=== PATIENT | male | born 1965 | race Caucasian/White ===

== ENCOUNTER 2016-03-24 13:00 | Inpatient (IN) | payer MEDICAID ==
[~2016-03-24] VITALS: Ht 175.3 cm; Wt 182.3 kg
--- NOTE | ~2016-03-24 | HEMODYNAMI ---
PATIENT:BRIAN PABLO MEDICAL RECORD: [id number] : 67 [facility] [id number] ADMISSION DATE: 03/24/16 Generatedon:03/25/201614:09 Patient name: BRIAN PABLO Patient #: [id number] SSN: : 1965 Date of study: 03/25/2016 Page: Of Hemodynamic Procedure Report Patient Data Patient Demographics Procedure consent was obtained First Name: BRIAN Gender: Male Last Name: SAMY : 1965 Patient #: [id number] Age: 50 year(s) Race: Unknown Additional ID: [id number] Contact details Address: [facility] [address] State: [place] City: [place] Zip code: [address] Past Medical History Allergies Allergen Reaction Date Comments Reported Other allergy 03/25/2016 DARVOCET N-100 Admission Admission Data Admission Date: 03/24/2016 Admission Time: 16:39 Room #: D.2117 Lab Results Lab Result Date: 03/25/2016 Lab Result Time: 0:00 Biochemistry Name Units Result Min Max BUN mg/dl 7 --(*---)-- 7 18 Creatinine mg/dl 0.8 --(-*--)-- 0.6 1.3 CBC Name Units Result Min Max Hemoglobin g/dl 12.2 *-(----)-- 13.5 17.5 Procedure Procedure Types Cath Procedure Diagnostic Procedure LHC LHC w/Coronaries PCI Procedure Coronary Stent Initial Procedure Description Procedure Date Procedure Date: 03/25/2016 Procedure Start Time: 13:32 Procedure End Time: 14:08 Procedure Staff Name Function Huy Villaseñor MD Performing Physician Taylor Doll RT Scrub Reema Guerra RN Nurse Reginald Menezes RT Monitor Procedure Data Cath Procedure Fluoroscopy Diagnostic fluoroscopy Total fluoroscopy Time: time: 10.1 min 10.1 min Diagnostic fluoroscopy Total fluoroscopy dose: dose: 2817 mGy 2817 mGy Contrast Material Contrast Material Type Amount (ml) Isovue 370 247 Entry Location Entry Primary Successful Side Size Upsize Upsize Entry Closure Marti ccessful Closure Location (Fr) 1 (Fr) 2 (Fr) Remarks Device Remarks Radial Right 6 Fr Mechanical artery Short Compression Diagnostic catheters Device Type Used For End Catheter Placement Terumo 5Fr Maxi 110cm LV Angiography catheter Terumo 5Fr [place] 110cm Left Coronary catheter Angiography Terumo Optitorque 5Fr Left Coronary [place] 4.5 catheter Angiography Cordis Infinity 5Fr AR 2 Right Coronary MOD catheter Angiography Procedure Complications No complications Procedure Medications Medication Administration Route Dosage Oxygen NC 2 l/min Heparin Flush Bag added to field 2 bags (1000units/500ml NS) Lidocaine 2% added to field 20 Radial Cocktail added to field 1 syringe (Verapomil 2mg/Nitro 400mcg/Heparin 1500units) Versed I.V. 1 mg Fentanyl I.V. 50 mcg Versed I.V. 1 mg Fentanyl I.V. 50 mcg Radial Cocktail I.A. 1 syringe (Verapomil 2mg/Nitro 400mcg/Heparin 1500units) Fentanyl I.V. 50 mcg Versed I.V. 0.5 mg Versed I.V. 0.5 mg Heparin Bolus I.V. 16705 units Versed I.V. 0.5 mg Fentanyl I.V. 25 mcg Versed I.V. 0.5 mg Fentanyl I.V. 25 mcg Plavix P.O. 600 mg Hemodynamics Rest HGB: 12.2 (g/dl) Heart Rate: 82 (bpm) Pressure Samples Time Site Value (mmHg) Purpose Heart Use Rate(bpm) 13:35 LV 177/-1,12 EDP 92 13:36 AO 176/92(122) Pullback 93 13:36 LV 177/12,15 Pullback 93 Gradients Valve Time Site 1 Site 2 Mean SEP/DFP Peak To Heart Use (mmHg) (sec/min) Peak Rate (mmHg) (bpm) Aortic 13:36 LV AO 91 Aortic 13:36 LV AO 13 6 1 93 177/12,15 176/92(122) Calculations Valve P-P Mean Valve Index Valve Source Name Gradient Area Flow (cm2) Aortic 1 13 1 13 Snapshots Pre Cath Intra NCS Post Cath Vital Signs Time Heart Resp SPO2 NIBP (mmHg) Rhythm Pain Sedation Rate (ipm) (%) Status Level (bpm) 13:14:33 98 16 99 Measuring NSR 0 (11) 10(A) , No pain 13:15:53 82 23 97 Out of range NSR 0 (11) 10(A) , No pain 13:19:08 82 16 98 210/108(176) NSR 0 (11) 10(A) , No pain 13:23:59 80 14 97 203/106(142) NSR 0 (11) 10(A) , No pain 13:28:48 79 15 97 193/99(157) NSR 0 (11) 10(A) , No pain 13:33:26 82 16 98 192/95(130) NSR 0 (11) 10(A) , No pain 13:38:00 90 15 96 173/96(138) NSR 0 (11) 9(A) , No pain 13:42:37 86 16 97 188/90(148) NSR 0 (11) 9(A) , No pain 13:47:15 84 16 98 184/96(136) NSR 0 (11) 9(A) , No pain 13:51:56 86 16 98 186/99(151) NSR 0 (11) 10(A) , No pain 13:56:55 85 16 96 Measuring NSR 0 (11) 10(A) , No pain 13:57:36 86 16 95 175/98(140) NSR 0 (11) 10(A) , No pain 14:02:13 90 16 99 186/94(134) NSR 0 (11) 10(A) , No pain 14:04:15 92 20 98 185/100(151) NSR 0 (11) 10(A) , No pain 14:08:50 156/91(122) NSR 0 (11) 10(A) , No pain Medications Time Medication Route Dose Verified Delivered Reason Note s Effectiveness by by 13:17:50 Oxygen NC 2 l/min Huy Reema Per physician Karthik Guerra RN 13:18:00 Heparin Flush added 2 bags Huy Huy used for Bag to Karthik Villaseñor MD procedure (1000units/500ml field NS) 13:18:07 Lidocaine 2% added 20ml Huy Huy used for to vial Karthik Villaseñor MD procedure field 13:18:15 Radial Cocktail added 1 Huy Huy used for (Verapomil to syringe Karthik Villaseñor MD procedure 2mg/Nitro field 400mcg/Heparin 1500units) 13:26:29 Versed I.V. 1 mg Huy Reema for sedation Karthik Guerra RN 13:26:34 Fentanyl I.V. 50 mcg Huy Reema for sedation Karthik Guerra RN 13:30:25 Versed I.V. 1 mg Huy Reema for sedation Karthik Guerra RN 13:30:33 Fentanyl I.V. 50 mcg Huy Reema for sedation Karthik Guerra RN 13:32:53 Radial Cocktail I.A. 1 Huy Huy for (Verapomil syringe Karthik Villaseñor MD vasodilation 2mg/Nitro 400mcg/Heparin 1500units) 13:33:06 Fentanyl I.V. 50 mcg Huy Reema for sedation Karthik Guerra RN 13:33:14 Versed I.V. 0.5 mg Huy Reema for sedation Karthik Guerra RN 13:38:17 Versed I.V. 0.5 mg Huy Reema for sedation Karthik Guerra RN 13:53:35 Heparin Bolus I.V. 52388 Huy Reema for dose units Karthik Guerra RN anticoagulation verified wtih dr villaseñor 13:53:57 Versed I.V. 0.5 mg Huy Reema for sedation Karthik Guerra RN 13:54:04 Fentanyl I.V. 25 mcg Huy Reema for sedation Karthik Guerra RN 13:59:42 Versed I.V. 0.5 mg Huy Reema for sedation Karthik Guerra RN 13:59:46 Fentanyl I.V. 25 mcg Huy Reema for sedation Karthik Guerra RN 14:02:42 Plavix P.O. 600 mg Huy Reema for Karthik Guerra RN antiplatelet therapy Procedure Log Time Note 12:41:41 ACC Patient presents with Unstable Angina CCS Anginal Class 2--Slight limitation of ordinary activity. 12:41:44 Diagnostic Cath status Urgent 12:41:47 Reginald Menezes RT(R) sent for patient. Start room use. 12:41:49 Time tracking: Regular hours 12:41:53 Plan of Care:Hemodynamics will remain stable., Cardiac rhythm will remain stable., Comfort level will be maintained., Respiratory function will remain adequate., Patient/ family verbilizes understanding of procedure., Procedure tolerated without complication., Recovers from procedure without complications.. 13:12:44 Vital chart was started 13:17:50 Oxygen 2 l/min NC was given by Reema Guerra RN; Per physician; 13:18:00 Heparin Flush Bag (1000units/500ml NS) 2 bags added to field was given by Huy Villaseñor MD; used for procedure; 13:18:07 Lidocaine 2% 20ml vial added to field was given by Huy Villaseñor MD; used for procedure; 13:18:15 Radial Cocktail (Verapomil 2mg/Nitro 400mcg/Heparin 1500units) 1 syringe added to field was given by Huy Villaseñor MD; used for procedure; 13:22:42 Patient received from PCU to CCL 1 Alert and oriented. Tansferred to table in Supine position. 13:22:43 Warm blankets applied, and rob hugger turned on for patient comfort. 13:22:44 Correct patient and procedure confirmed by team. 13:22:45 Signed procedure consent form obtained from patient. 13:22:46 ECG and BP/O2 sat monitors applied to patient. 13:22:47 Baseline sample Acquired. 13:22:51 Rhythm: sinus rhythm 13:22:52 Full Disclosure recording started 13:22:59 H&P Date Dictated: 03/24/2016 Within 30 days and on chart., H&P Addendum completed by physician on day of procedure. (MUST COMPLETE FOR ALL OUTPATIENTS). 13:23:13 Pre-procedure instructions explained to patient. 13:23:14 Pre-op teaching completed and patient verbalized understanding. 13:23:16 Family unavailable. 13:23:22 Patient NPO since Midnight. 13:23:42 Patient allergic to Other allergyDARVOCET N-100 13:23:46 Is the patient allergic to Iodine/contrast media? No. 13:23:48 Was the patient premedicated? No 13:23:51 Is patient on blood thinner?No 13:23:53 Patient diabetic? Yes. 13:23:54 If diabetic: On Metformin? Yes 13:24:08 ----Pre-sedation anethsthesia assessment.---- 13:24:12 If on Metformin: Last Dose? 03/25/2016 13:24:15 Previous problem with sedation/anesthesia? No ? 13:24:16 Snore? Yes 13:24:18 Sleep apnea? Yes 13:24:19 Deviated septum? No 13:24:26 Opens mouth fully? Yes 13:24:30 Sticks out tongue? Yes 13:24:34 Airway obstruction? Yes COPD 13:24:47 Dentures? No ? 13:25:07 Pre procedure: right dorsailis pedis pulse 1+ Palpable, but thready & weak; easily obliterated 13:25:10 Modified Shay's test Ulnar < 7 seconds 13:25:16 Patient pain scale 0/10 ?. 13:25:23 IV patent on arrival in left antecubital with 0.9% NaCl at 10ml/hr. 13:25:51 Lab Result : BUN 7 mg/dl 13:25:51 Lab Result : Creatinine 0.8 mg/dl 13:25:51 Lab Result : Hemoglobin 12.2 g/dl 13:25:54 Lab results completed and on chart. 13:25:57 Right Radial & Right Groin area was prepped with chlora-prep and draped in sterile fashion 13:25:58 Alarms reviewed by R. N. 13:25:58 Sharps counted by scrub and verified by R.N. 13:26:02 --------ALL STOP TIME OUT------ 13:26:02 Final Timeout: patient, procedure, and site verified with staff and physician. All members of the team are in agreement. 13:26:04 Right Radial & Right Groin site verified by team. 13:26:07 Physical assessment completed. ASA score P 3 - A patient with severe systemic disease as per Huy Villaseñor MD. 13:26:11 Sedation plan: IV Moderate Sedation Versed, Fentanyl 13:26:29 Versed 1 mg I.V. was given by Reema Guerra RN; for sedation; 13:26:34 Fentanyl 50 mcg I.V. was given by Reema Guerra RN; for sedation; 13:26:52 Use device set Radial Dx 13:27:34 Acist Syringe opened to sterile field. 13:27:34 Cardinal Cath Pack opened to sterile field. 13:27:35 Bag Decanter opened to sterile field. 13:27:35 Terumo 6Fr Slender Glidesheath opened to sterile field. 13:27:35 St [place]var[place] 260cm J .035 wire opened to sterile field. 13:27:36 Acist Hand Control opened to sterile field. 13:27:37 Acist Manifold opened to sterile field. 13:28:33 Procedure started. 13:30:25 Versed 1 mg I.V. was given by Reema Guerra RN; for sedation; 13:30:33 Fentanyl 50 mcg I.V. was given by Reema Guerra RN; for sedation; 13:31:10 Zero performed for pressure channel P1 13:31:14 Zero performed for pressure channel P1 13:31:20 Zero performed for pressure channel P1 13:32:42 Local anesthetic to right radial artery with Lidocaine 2% by Huy Villaseñor MD.INITIAL ACCESS ONLY 13:32:50 A 6 Fr Short sheath was inserted into the Right Radial artery 13:32:53 Radial Cocktail (Verapomil 2mg/Nitro 400mcg/Heparin 1500units) 1 syringe I.A. was given by Huy Villaseñor MD; for vasodilation; 13:33:06 Fentanyl 50 mcg I.V. was given by Reema Guerra RN; for sedation; 13:33:14 Versed 0.5 mg I.V. was given by Reema Guerra RN; for sedation; 13:34:27 A Terumo 5Fr Maxi 110cm catheter was advanced over the wire and used for LV Angiography. 13:35:19 LV angiography performed. 13:35:21 LV gram done using STACK 13:35:24 LV hemodynamics recorded. 13:35:44 EF : 50 % 13:38:17 Versed 0.5 mg I.V. was given by Reema Guerra RN; for sedation; 13:39:00 Catheter removed. 13:39:43 A Terumo 5Fr [place] 110cm catheter was advanced over the wire and used for Left Coronary Angiography. 13:42:59 Catheter removed. 13:44:24 A Terumo Optitorque 5Fr [place] 4.5 catheter was advanced over the wire and used for Left Coronary Angiography. 13:46:19 Catheter removed. 13:46:24 A MathZee Infinity 5Fr AR 2 MOD catheter was advanced over the wire and used for Right Coronary Angiography. 13:50:28 Catheter removed. 13:52:00 High Pressure Extension Tubing (Karthik) opened to sterile field. 13:52:00 Alves BMW [place] 2 J-tip 300cm 0.014 guide wir opened to sterile field. 13:52:01 Cordis 6FR XBLAD 4.0 guide catheter opened to sterile field. 13:52:01 Wallept BasixCompak Inflation Kit opened to sterile field. 13:52:14 ACC PCI Site: mLAD has 80% stenosis. 13:52:16 ACC Pre-intervention SHIRLEY Flow is 3. 13:52:25 6 Fr XBLAD 4 guide catheter was inserted over the wire 13:52:34 BMW 2 wire advanced. 13:53:35 Heparin Bolus 73863 units I.V. was given by Reema Guerra RN; for anticoagulation; dose verified wtih dr villaseñor 13:53:57 Versed 0.5 mg I.V. was given by Reema Guerra RN; for sedation; 13:54:04 Fentanyl 25 mcg I.V. was given by Reema Guerra RN; for sedation; 13:58:47 Inflation Number: 1 A Cardeeotronic Integrity 3.5 X 18 stent was prepped and advanced across the Mid LAD. The stent was deployed at 16 JOSH for 0:17 (min:sec). 13:59:42 Versed 0.5 mg I.V. was given by Reema Guerra RN; for sedation; 13:59:46 Fentanyl 25 mcg I.V. was given by Reema Guerra RN; for sedation; 14:00:19 Stent catheter was removed intact over wire. 14:00:20 Wire removed. 14:00:20 Guide catheter removed. 14:00:46 Sheath removed intact; hemostasis achieved with Mechanical Compression to the Right Radial artery. 14:00:57 Procedure ended.(Physican Out) 14:01:16 Contrast amount:Isovue 370 247ml. 14:01:23 Fluoroscopy time 10.10 minutes. 14::31 Fluoroscopy dose: 2817 mGy 14:: Flurop Dose total: 2817 14::33 Sharps counted by scrub and verified by R.N. 14:01:35 TR band inflated with 10cc of air. 14:01:37 Insertion/operative site no bleeding no hematoma. 14:01:57 Post-op/insertion site Right Radial artery dressed using a 4 x 4 and Tegaderm. 14:02:03 Post right radial artery:stable 14:02:24 Post Procedure Pulses reassessed and unchanged 14:02:32 Post procedure rhythm: sinus rhythm 14:02:33 Post procedure instruction explained to patient.Patient verbalizes understanding. 14:02:42 Plavix 600 mg P.O. was given by Reema Guerra RN; for antiplatelet therapy; 14:02:43 Patient needs reinforcement of post procedure teaching. 14:03:09 Procedure type changed to Cath procedure, Diagnostic procedure, LHC, LHC w/Coronaries, PCI procedure, Coronary Stent Initial 14:03:13 Procedure and supply charges have been captured, reviewed, submitted and are correct. 14:03:53 Terumo TR Band Standard opened to sterile field. 14:04:00 Procedure Complication : No complications 14:08:27 Vital chart was stopped 14:08:28 See physician's report for complete and final results. 14:08:35 Report given to PCU. 14:08:39 Patient transfered to PCU with Bed. 14:08:42 Procedure ended. 14:08:42 Full Disclosure recording stopped 14:08:54 ACC-PCI Only Patient was given prescriptions, or instructed by Huy Villaseñor MD to start/continue the following medications upon discharge: Plavix 14:08:57 End room use (Document Last) Intervention Summary Intervention Notes Time ActionType Lesion and Equipment Action# Pressure Duration Attributes Used 13:58:47 Place stent Mid LAD Medtronic 1 16 00:17 Integrity 3.5 X 18 stent Device Usage Item Name Manufacture Quantity Catalog Hospital Part Current Minimal Lot# / Number Charge Number Stock Stock Serial# Code Acist Acist 1 83767 858112 586156 316992 20 Syringe Medical Systems Inc Cardinal Cardinal 1 [id number] 557993 05527 161733 5 Cath Pack Health Bag Microtek 1 2001S 252436 22954 851438 5 Cloud[employer]age [employer] Terumo 6Fr Terumo 1 [id number] 500517 487781 788015 [address] St Alvarado 1 123734 514663 550895 167190 30 260cm J .035 wire Acist Hand Acist 1 29704 116235 821128 395462 5 Control Medical Systems Inc Acist Acist 1 96052 183264 933186 811510 5 Manifold Medical Systems Inc Terumo 5Fr Terumo 1 40-5023 102021 215713 902235 5 Maxi 110cm catheter Terumo 5Fr Terumo 1 40-0513 238924 198723 239149 5 [place] 110cm catheter Terumo Terumo 1 40-5012 032360 025898 981239 5 Optitorque 5Fr [place] 4.5 catheter Cordis Cardinal 1 [id number] 464473 886603 884778 20 Infinity Health 5Fr AR 2 MOD catheter High Merit 1 [id number] 433540 35576 339621 10 Pressure Medical Extension Tubing (Villaseñor) Alves BMW Alves 1 [id number] 737881 306423 649413 5 [place] 2 Vascular J-tip 300cm 0.014 guide wir Cordis 6FR Cardinal 1 [id number] 102649 080485 988889 3 XBLAD 4.0 Health guide catheter Merit Merit 1 [id number] 821792 470630 579005 15 BasixCompak Medical Inflation Kit Medtronic Medtronic 1 [id number] 940864 116129 9 [id number] Integrity 3.5 X 18 stent Terumo TR Terumo 1 [id number] 010624 785934 325436 40 Band Standard Signature Audit Haskell Stage Time Signature Unsigned Intra-Procedure 03/25/2016 Reginald Menezes 2:09:47 PM RT(R) Signatures Monitor : Reginald Menezes RT Signature : Date : Time : [facility] [address] [place] [address]
[~2016-03-24 13:00] MED LIST: ALLEGRA-D1 TAB.SR . PO; AMBIEN10 MG PO; AMITRIPTYLINE H50 MG PO; APIDRA SOL100 UNIT/1; GLUCOPHAGE1000 MG PO; LANTUS SOL100 UNIT/1; LYRICA150 MG PO; MORPHINE SULFAT15 M3 PO; NEURONTIN 300300 MG PO; NORCO 10/325 TA1 TA1 PO; NOVOLIN R100 U/ML SQ; NYSTATIN60 GM TP; ORAMORPH SR30 MG PO; PRINIVIL20 MG PO; TAMIFLU75 MG PO; TOPROL XL50 MG PO; ZITHROMAX500 MG PO
[2016-03-24 14:06] LABS: BASOPHILS 0.5 % (0.0-2.0); EOSINOPHILS 4.7 % (0-7); HEMATOCRIT 41.1 % (42.0-54.0); HEMOGLOBIN 13.5 g/dL (13.5-17.5); IMMATURE GRANULOCYTES 0.5 % (0-5); LYMPHOCYTES 23.7 % (15-50); MCH 28.2 pg (26.0-34.0); MCHC 32.8 g/dL (31.0-37.0); MCV 85.8 fL (80.0-100.0); MEAN PLATELET VOLUME 11.7 fL (7.4-10.4); MONOCYTES 13.2 % (2-11); NEUTROPHILS 57.4 % (40-80); PLATELET COUNT 127 10x3/uL (130-400); RBC 4.79 10x6/uL (4.20-6.10); RDW 14.4 % (11.5-14.5); WBC 5.8 10x3/uL (4.8-10.8)
[2016-03-24 14:22] LABS: APPEARANCE HAZY (CLEAR); BACTERIA MODERATE /hpf (NONE SEEN); BILIRUBIN NEGATIVE (NEGATIVE); COLOR YELLOW (YELLOW); EPITHELIAL CELLS 0-5 /hpf (0-5); GLUCOSE 1000 mg/dL (NEGATIVE); KETONE NEGATIVE (NEGATIVE); LEUKOCYTE ESTERASE TRACE (NEGATIVE); MUCUS >1+ /lpf (NONE SEEN); NITRITE NEGATIVE (NEGATIVE); PROTEIN NEGATIVE (NEGATIVE); SPECIFIC GRAVITY 1.015 (1.005-1.020); UROBILINOGEN NORMAL (NORMAL)
[2016-03-24 14:25] LABS: UDS - AMPHET NEGATIVE QUAL (NEGATIVE); UDS - BARB NEGATIVE QUAL (NEGATIVE); UDS - BENZO NEGATIVE QUAL (NEGATIVE); UDS - COCAINE NEGATIVE QUAL (NEGATIVE); UDS - METH NEGATIVE QUAL (NEGATIVE); UDS - OPIATE POSITIVE QUAL (NEGATIVE); UDS - PCP NEGATIVE QUAL (NEGATIVE); UDS - THC NEGATIVE QUAL (NEGATIVE)
[2016-03-24 15:52] LABS: ALKALINE PHOSPHATASE 78 U/L (46-116); ALT (SGPT) 30 U/L (10-68); CALC OSMOLALITY 289 mosm/kg (275-300); CALCIUM 8.5 mg/dL (8.5-10.1); CARBON DIOXIDE 32.4 mmol/L (21.0-32.0); CHLORIDE - SERUM 101 mmol/L (98-107); CREATININE - SERUM 0.9 mg/dL (0.6-1.3); POTASSIUM - SERUM 4.1 mmol/L (3.5-5.1); PROTEIN - SERUM 6.7 g/dL (6.4-8.2); SODIUM 138 mmol/L (136-145); UREA NITROGEN 8 mg/dL (7-18); eGFR NON AFRICAN AMERICAN > 90 mL/min (90-120)
[2016-03-24 15:56] LABS: GLUCOSE 380 mg/dL (74-106)
[2016-03-24 16:11] LABS: CREATINE KINASE 286 UL (21-232); MAGNESIUM - SERUM 1.3 mg/dL (1.8-2.4); PRO BNP 271 pg/mL (0-125)
[2016-03-24 16:14] LABS: TROPONIN-I 0.098 ng/mL (0.000-0.060)
[2016-03-24 16:32] LABS: CKMB 2.6 U/L (0.0-3.6)
--- NOTE | 2016-03-24 17:49 | NUR ---
Patient Name: BRIAN PABLO Admission Status: ER Accout number: [id number] Admission Date: 03-24-2016 : 1965 Admission Diagnosis: Attending: CARTER Current LOS: 1 Anticipated DC Date: 03/25/2016 Planned Disposition: Primary Insurance: MEDICAID [place] Discharge Planning Comments: CM met with patient to discuss admission and dc plans. Consent from patient to complete assessment. Patient resides home alone. He has a cg 4 hours a day that assists with cooking, cleaning, bathing, dressing, and medication management. Patient reports he is wheelchair bound. HE has a cpap and O2 that he wears 06/10. Santa is his DME provider. HE reports his caregiver also provides all transportation needs for him. His aide is hired through [employer]. He plans to return home alone at discharge. He feels his home is safe. CM will continue to follow and assist as needed with dc plans/needs. Elastic Assembler: Mikki Casarez RN, CCM Is the patient Alert and Oriented? Yes * How many steps to enter\exit or inside your home? 0 * PCP Dr. Fontanez * Pharmacy [facility] * Preadmission Environment Home Alone * ADLs Partial Dependent * Partial ADLs (Assistance needed) Bathing Dressing Medication Management * Equipment Bedside Commode CPAP Glucometer Hospital Bed Nebulizer Oxygen Wheelchair * List name and contact numbers for known caregivers / representatives who currently or will assist patient after discharge: Srini Ordaz, Caregiver, he will get her phone number. * Community resources currently utilized Private Duty Care * Additional services required to return to the preadmission environment? No * Can the patient safely return to the preadmission environment? Yes * Has this patient been hospitalized within the prior 30 days at any hospital? No
[2016-03-24] MEDS ORDERED: PROVENTIL HFA6.7 GM INH (20:05)
[2016-03-24] MEDS ORDERED: MIRALAX527 GM PO (20:06)
[2016-03-24] MEDS ORDERED: NYAMYC60 GM TP (20:06)
[2016-03-25] VITALS (13 sets, daily range): BP systolic 140–217; BP diastolic 69–102; Ht 175.3 cm; Wt 182.3 kg
--- NOTE | 2016-03-25 04:43 | NUR ---
PT ARRIVED TO UNIT BY STRETCHER WITH FAMILY AT SIDE NO DISTRESS OBSERVED IVP FLUSHED WITH 10CC NORMAL SALINE. HOME MEDS REVIEWED WITH PT. BED LOW AND LOKCED CALL LIGHT IN REACH WILL MONITOR
--- NOTE | 2016-03-25 08:17 | NUR ---
ASSESSMENT COMPLETE PT RESTING QUIETLY DENIES ANY NEEDS OR DISCOMFORT NAD NOTED
[2016-03-25 08:43] LABS: CALC OSMOLALITY 291 mosm/kg (275-300); CARBON DIOXIDE 28.4 mmol/L (21.0-32.0); CHLORIDE - SERUM 105 mmol/L (98-107); CREATININE - SERUM 0.8 mg/dL (0.6-1.3); GLUCOSE 266 mg/dL (74-106); SODIUM 143 mmol/L (136-145); UREA NITROGEN 7 mg/dL (7-18); eGFR NON AFRICAN AMERICAN > 90 mL/min (90-120)
[2016-03-25 08:52] LABS: BASOPHILS 0.4 % (0.0-2.0); EOSINOPHILS 7.2 % (0-7); HEMOGLOBIN 12.2 g/dL (13.5-17.5); IMMATURE GRANULOCYTES 0.4 % (0-5); LYMPHOCYTES 40.3 % (15-50); MCH 28.2 pg (26.0-34.0); MCV 85.5 fL (80.0-100.0); MEAN PLATELET VOLUME 11.7 fL (7.4-10.4); MONOCYTES 9.8 % (2-11); NEUTROPHILS 41.9 % (40-80); PLATELET COUNT 120 10x3/uL (130-400); RBC 4.33 10x6/uL (4.20-6.10); RDW 14.5 % (11.5-14.5); WBC 4.7 10x3/uL (4.8-10.8)
--- NOTE | 2016-03-25 14:20 | NUR ---
RECEIVED PT BACK TO ROOM VIA BED IN STABLE CONDITION TR BAND INTACT TO RT WRIST WILL CONTINUE TO MONITOR
--- NOTE | 2016-03-25 23:50 | NUR ---
PT LAYING IN BED EYES CLOSED BIPAP ON AND NO DISTRESS OBSERVED AT THIS TIME CALL LIGHT IN REACH SRX2 BED LOW AND LOCKED TR BAND IN PLACE AND AIR OUT NO S/S OF HEMATOMA OR BLEEDING PRESENT WILL MONITOR
[2016-03-26 00:14] VITALS: BP 200/88
[2016-03-26 05:07] VITALS: BP 202/68
[2016-03-26 07:37] VITALS: BP 178/73
--- NOTE | 2016-03-26 09:13 | NUR ---
TELEMETRY SR. RESP UL ON 02 4L NC. CALL LIGHT IN REACH. WILL CONT. PLAN OF CARE.
[2016-03-26 11:27] VITALS: BP 189/66
--- NOTE | 2016-03-26 13:06 | NUR ---
RATIONALE FOR SCD'S EXPLAINED. REFUSED SCD'S
[2016-03-26 15:27] VITALS: BP 197/78
[2016-03-26 21:18] VITALS: BP 157/59
--- NOTE | 2016-03-26 23:41 | NUR ---
PT LAYING IN BED NO DISTRESS OBSERVED AT THIS TIME WILL MONITRO
[2016-03-27 01:32] VITALS: BP 141/61
[2016-03-27 04:57] VITALS: BP 192/87
[2016-03-27 08:38] VITALS: BP 125/95; BP 235/95
--- NOTE | 2016-03-27 09:15 | NUR ---
ELEVATED B/P GIVEN TO DR. GALVAN. NEW ORDERS GIVEN.
[2016-03-27 12:25] VITALS: BP 209/90
--- NOTE | 2016-03-27 15:29 | NUR ---
B/P CALLED TO DR. GALVAN. NEW ORDERS GIVEN.
[2016-03-27 16:28] VITALS: BP 201/73
--- NOTE | 2016-03-27 19:36 | NUR ---
RESUMED CARE OF PT, LYING IN BED RESPIRATIONS EVEN AND UNLABORED ON 4LPM VIA NC. 84 SR ON TELEMETRY. LEFT AC SALINE LOCKED. PLAN OF CARE DISCUSSED. CALL LIGHT IN REACH. WILL CONTINUE TO MONITOR. SEE NURSE ASSESSMENT.
[2016-03-27 20:50] VITALS: BP 237/107
--- NOTE | 2016-03-27 21:35 | NUR ---
RECHECKED BP 177/76. STATES HEADACHE IS IMPROVING, WILL CONTINUE TO MONITOR.
[2016-03-28 02:50] VITALS: BP 146/78
--- NOTE | 2016-03-28 05:00 | NUR ---
CALL LIGHT IN REACH, WILL CONTINUE WITH PLAN OF CARE.
[2016-03-28 05:22] VITALS: BP 148/70
[2016-03-28 08:00] VITALS: BP 198/63
--- NOTE | 2016-03-28 09:08 | NUR ---
RESP UL ON 02 4L NC. CALL LIGHT IN REACH. WILL MONITOR NEEDS.
[2016-03-28 12:00] VITALS: BP 176/59
--- NOTE | 2016-03-28 14:06 | NUR ---
Nutrition Follow Up: Pt reported that his appetite is very poor. He stated that he does not typically eat breakfast. Pt said that he has lost ~50# in the past few months. Food preferences noted. Diet: Diabetic PO Intake: 58% (9 meal avg) Wt gain of 7# since admit Labs noted - Glucose elevated Meds noted: Humalog, Metformin Pt with fair po intake at this time. Rec continue current diet. Will continue to provide selective menus and honor food preferences when able. RD following.
[2016-03-28 16:02] VITALS: BP 161/65
[2016-03-28 20:35] VITALS: BP 195/70
[2016-03-29 00:45] VITALS: BP 157/70
--- NOTE | 2016-03-29 02:04 | NUR ---
PT RESTING WELL WITHOUT C/O OR DISTRESS NOTED. NO NEEDS VOICED. CALL LIGHT WITHIN REACH. WILL CONT TO MONITOR.
[2016-03-29 04:20] VITALS: BP 156/68
[2016-03-29 08:40] VITALS: BP 192/80
--- NOTE | 2016-03-29 09:40 | NUR ---
ASSESSMENT COMPLETEDTELEMERTY SHOWS SR. 02 AT 4 L/M PER NC. UP TO BR WITH MINIAL HELP. CALL LIGHT IN REACH WITH SR UP. WILL MONITOR
[2016-03-29] MEDS ORDERED: NITRO-BID60 GM TOPICAL (10:15)
[2016-03-29] MEDS ORDERED: NORMODYNE / TR300 MG PO (10:15)
[2016-03-29 12:03] VITALS: BP 193/79
[2016-03-29] MEDS ORDERED: PLAVIX75 MG PO (12:39)
--- NOTE | 2016-03-29 13:32 | NUR ---
PT DISCHARGED. IV DCD WITH TIP INTACT. INSTRUCTIONS GIVEN TO PT. TO PRIVATE CAR PER WHEELCHAIR
--- NOTE | 2016-04-07 15:45 | OP ---
PATIENT NAME: BRIAN PABLO MEDICAL RECORD: [id number] :67 LOCATION:D.M2 D.2117 ADMISSION DATE:03/25/16 SURGEON: DAVE GALVAN M.D. DATE OF OPERATION: 03/25/2016 Catheterization Report REFERRING PHYSICIAN: Giuseppe Fontanez MD PROCEDURES PERFORMED: 1. Selective coronary angiography. 2. Left heart catheterization with ventriculogram. 3. PTCA and stent placed in LAD INDICATION: A 50-year-old gentleman presents with symptoms of angina and abnormal cardiac enzymes. EQUIPMENT USED: Diagnostic 5-Kazakh [place] 4.5 catheter, AR catheter, Maxi catheter. INTERVENTION: A 6-Kazakh XB LAD 4.0 guide, BMW guide wire, 3.5 x 18 mm Integrity stent. TECHNIQUE: A 6-Kazakh sheath was inserted in retrograde fashion in the right radial artery. Next, selective coronary angiography was performed in standard views using 5-Kazakh [place] and AR modified catheters. Left heart catheterization was performed using the Maxi catheter. CORONARY ANATOMY: 1. Left main: Left main trunk is large in caliber. It gives rise to the LAD and circumflex. It is angiographically normal. 2. LAD: This vessel is large in caliber. The proximal vessel demonstrates a ruptured plaque representing 80% stenosis. 3. Circumflex: This vessel is quite large and dominant. It provides the lateral branch in the proximal segment ____ posterolateral distal segment. The circumflex and tributaries are and angiographically normal. 4. Right coronary artery: This vessel is small and nondominant. It appears angiographically normal. 5. Left ventricle: Left ventricle is normal in size and function. No wall motion abnormalities are seen. Estimated ejection fraction is 55%. DESCRIPTION OF INTERVENTION: A 12,000 units of heparin was infused. A 6-Kazakh XB LAD 4.0 guide was advanced and engaged in the left main coronary artery. Next, a BMW guide wire was placed in the distal vessel. A 3.5 x 18 mm Integrity stent was placed across the stenosis and deployed at 16 atmospheres. Injection reveals stent to be widely patent with 0% residual stenosis. There is marked improvement in distal flow. At this point, the wire and guide were removed. IMPRESSION: Successful percutaneous transluminal coronary angioplasty and stent in the left anterior descending with 0% residual stenosis. TRANSINT:[id number] Voice Confirmation ID: [id number] DOCUMENT ID: [id number] OPERATIVE REPORT [id number] BRIAN PABLO TIMOTHY E M.D. at 1545 CC: [id number] DICTATION DATE: 03/25/161405 SAFE TECHNICIAN: 03/25/16 1417 DIS IN 03/29/16 [place] [id number] [place] [id number]
== END 2016-03-29 13:33 | disposition home or self-care (01) | DRG 249 ==
LOC: D.ER 13:00 → D.M2 16:39 → OBSVTIME 16:39 → D.M2 03-25 20:08
PROVIDERS: Family Medicine; Internal Medicine Cardiovascular Disease; Nurse Practitioner Family; ADMIT Legal Medicine
PROC: B211YZZ Fluoroscopy of Multiple Coronary Arteries using Other Contrast (ICD-10-PCS; 2016-03-25)
PROC: 02703DZ Dilation of Coronary Artery, One Artery with Intraluminal Device, Percutaneous Approach (ICD-10-PCS; principal; 2016-03-25 13:30)
PROC: 4A023N7 Measurement of Cardiac Sampling and Pressure, Left Heart, Percutaneous Approach (ICD-10-PCS; 2016-03-25 13:30)
DX: I25.10 Atherosclerotic heart disease of native coronary artery without angina pectoris (principal); Z68.43 Body mass index [BMI] 50.0-59.9, adult; I69.351 Hemiplegia and hemiparesis following cerebral infarction affecting right dominant side; I10 Essential (primary) hypertension; E78.5 Hyperlipidemia, unspecified; E66.01 Morbid (severe) obesity due to excess calories; E11.40 Type 2 diabetes mellitus with diabetic neuropathy, unspecified; G89.4 Chronic pain syndrome

== ENCOUNTER 2016-07-23 16:46 | Emergency (ER) | payer MEDICAID ==
[2016-03-25 14:03] VITALS: BMI 59.1
[~2016-07-23 16:46] MED LIST changes: +MIRALAX527 GM PO; +NITRO-BID60 GM TOPICAL; +NORMODYNE / TR300 MG PO; +NYAMYC60 GM TP; +PLAVIX75 MG PO; +PROVENTIL HFA6.7 GM INH
[2016-07-23 17:30] LABS: BASOPHILS 0.3 % (0-2); EOSINOPHILS 5.5 % (0-7); HEMATOCRIT 32.8 % (42.0-54.0); HEMOGLOBIN 10.7 g/dL (13.5-17.5); IMMATURE GRANULOCYTES 0.3 % (0-5); LYMPHOCYTES 19.2 % (15-50); MCH 28.6 pg (26.0-34.0); MCHC 32.6 g/dL (31.0-37.0); MCV 87.7 fL (80.0-100.0); MEAN PLATELET VOLUME 11.2 fL (7.4-10.4); MONOCYTES 10.1 % (2-11); NEUTROPHILS 64.6 % (40-80); PLATELET COUNT 119 10x3/uL (130-400); RBC 3.74 10x6/uL (4.20-6.10); RDW 13.7 % (11.5-14.5); WBC 7.4 10x3/uL (4.8-10.8)
[2016-07-23 18:06] LABS: ALBUMIN 2.8 g/dL (3.4-5.0); ALKALINE PHOSPHATASE 88 U/L (46-116); ALT (SGPT) 25 U/L (10-68); BILIRUBIN - TOTAL 0.42 mg/dL (0.2-1.3); CALC OSMOLALITY 289 mosm/kg (275-300); CALCIUM 8.2 mg/dL (8.5-10.1); CHLORIDE - SERUM 104 mmol/L (98-107); CREATININE - SERUM 0.9 mg/dL (0.6-1.3); GLUCOSE 235 mg/dL (74-106); POTASSIUM - SERUM 3.9 mmol/L (3.5-5.1); PROTEIN - SERUM 6.6 g/dL (6.4-8.2); SODIUM 142 mmol/L (136-145); UREA NITROGEN 9 mg/dL (7-18); eGFR NON AFRICAN AMERICAN > 90 mL/min (90-120)
== END 2016-07-23 19:35 | disposition home or self-care (01) ==
LOC: D.ER 16:46
PROVIDERS: Nurse Practitioner Family
DX: L03.211 Cellulitis of face (principal); L02.01 Cutaneous abscess of face; J44.9 Chronic obstructive pulmonary disease, unspecified; F03.90 Unspecified dementia, unspecified severity, without behavioral disturbance, psychotic disturbance, mood disturbance, and anxiety; Z86.73 Personal history of transient ischemic attack (TIA), and cerebral infarction without residual deficits; E11.9 Type 2 diabetes mellitus without complications; C73 Malignant neoplasm of thyroid gland

== ENCOUNTER 2016-10-27 23:41 | Inpatient (IN) | payer MEDICAID ==
[~2016-10-27] VITALS: Ht 175.3 cm; Wt 194.4 kg
[2016-10-28 00:09] LABS: HEMATOCRIT 33.3 % (42.0-54.0); HEMOGLOBIN 10.8 g/dL (13.5-17.5); LYMPHOCYTES 34.9 % (15-50); MCH 26.9 pg (26.0-34.0); MCHC 32.4 g/dL (31.0-37.0); MCV 82.8 fL (80.0-100.0); MEAN PLATELET VOLUME 10.9 fL (7.4-10.4); NEUTROPHILS 46.9 % (40-80); PLATELET COUNT 116 10x3/uL (130-400); RBC 4.02 10x6/uL (4.20-6.10); RDW 16.2 % (11.5-14.5)
[2016-10-28 00:20] LABS: ALBUMIN 2.9 g/dL (3.4-5.0); ALKALINE PHOSPHATASE 76 U/L (46-116); ALT (SGPT) 21 U/L (10-68); CALC OSMOLALITY 289 mosm/kg (275-300); CALCIUM 8.8 mg/dL (8.5-10.1); CARBON DIOXIDE 33.4 mmol/L (21.0-32.0); CHLORIDE - SERUM 105 mmol/L (98-107); CREATININE - SERUM 0.8 mg/dL (0.6-1.3); GLUCOSE 234 mg/dL (74-106); POTASSIUM - SERUM 4.3 mmol/L (3.5-5.1); PROTEIN - SERUM 6.9 g/dL (6.4-8.2); SODIUM 142 mmol/L (136-145); UREA NITROGEN 11 mg/dL (7-18); eGFR NON AFRICAN AMERICAN > 90 mL/min (90-120)
[2016-10-28 00:31] LABS: KETONE - SERUM NEGATIVE (NEGATIVE)
[2016-10-28 01:32] LABS: APPEARANCE CLEAR (CLEAR); BILIRUBIN NEGATIVE (NEGATIVE); COLOR YELLOW (YELLOW); GLUCOSE 50 mg/dL (NEGATIVE); KETONE NEGATIVE (NEGATIVE); LEUKOCYTE ESTERASE NEGATIVE (NEGATIVE); NITRITE NEGATIVE (NEGATIVE); PROTEIN NEGATIVE (NEGATIVE); SPECIFIC GRAVITY 1.005 (1.005-1.020); UROBILINOGEN NORMAL (NORMAL)
[2016-10-28 01:33] LABS: BACTERIA NONE SEEN /hpf (NONE SEEN); EPITHELIAL CELLS NSEEN /hpf (0-5); RED CELLS - URINE 0-5 /hpf (0-5); WHITE CELLS - URINE NSEEN /hpf (0-5)
--- NOTE | 2016-10-28 02:05 | NUR ---
RECEIVED PT FROM ER. NO VISIBLE SIGNS OF DISTRESS. BED IN LOWEST POSITION AND CALL LIGHT W/I REACH. ENCOURAGED THE PT TO CALL IF HE HAS NEEDS.
[2016-10-28] MEDS ORDERED: CATAPRES0.1 MG PO (02:17)
[2016-10-28] MEDS ORDERED: LANTUS SOL100 UNIT/1 SC (02:19)
[2016-10-28] MEDS ORDERED: APIDRA100 U/M1 SQ (02:21)
--- NOTE | 2016-10-28 02:50 | NUR ---
PAGED JOSE IN REGARDS TO PAIN MEDICATION
--- NOTE | 2016-10-28 02:53 | NUR ---
RESTARTED MORPHINE AND NORCO PER JOSE
[2016-10-28] MEDS ORDERED: MS CONTIN60 MG PO (03:19)
[2016-10-28 05:22] VITALS: BP 159/73; BMI 74.4
--- NOTE | 2016-10-28 07:30 | NUR ---
RECIEVED PT DURING WALKING ROUNDS, PT RESTING IN BED WITH COMPLAINTS OF PAIN OF A 6 ON A SCALE OF 1-10. NO MEDICATION TO BE GIVEN AT THIS TIME. ASSESSMENT DONE PER FLOWSHEET. BED IN LOW POSITION AND CALL LIGHT WITHIN REACH. WILL CONTINUE TO MONITOR.
[2016-10-28 09:23] VITALS: BP 156/71
--- NOTE | 2016-10-28 12:08 | NUR ---
FSBS 77 AT THIS TIME, INSTRUCTED PT TO DRINK ORANGE JUICE. PT IS ASYMPTOMATIC OF HYPOGYLCEMIA. WILL CONTINUE TO MONITOR.
[2016-10-28 12:59] VITALS: BP 154/68
[2016-10-28 13:06] VITALS: Ht 175.3 cm; Wt 194.4 kg
[2016-10-28 16:58] VITALS: BP 168/78
[2016-10-28 20:00] VITALS: BP 220/71
--- NOTE | 2016-10-28 20:00 | NUR ---
PATIENT RESTING IN BED AND DENIES NEEDS AT THIS TIME. BED IN LOWEST POSITION AND CALL LIGHT WITHIN REACH. ENCOURAGED THE PATIENT TO CALL IF HE HAS NEEDS.
--- NOTE | 2016-10-28 21:30 | NUR ---
ASSISTED PATIENT TO AND FROM THE RESTROOM. PATIENT DENIES OTHER NEEDS AT THIS TIME. BED IN LOWEST POSITION AND CALL LIGHT WITHIN REACH. ENCOURAGED THE PATIENT TO CALL IF HE HAS FURTHER NEEDS.
[2016-10-29 04:00] VITALS: BP 173/70
--- NOTE | 2016-10-29 09:15 | NUR ---
ASSESSMENT COMPLETE. IV TO L AC PATENT. NS INFUSING AT 150 CC/HR VIA PUMP. O2 4L NC IN USE. NYA NERISSA BED IN USE. DENIES ANY NEEDS AT THIS TIME.
[2016-10-29 09:52] VITALS: BP 177/73
--- NOTE | 2016-10-29 11:45 | NUR ---
NYSTATIN POWDER APPLIED UNDER ABDOMINAL FOLDS. SLIGHT REDNESS NOTED UNDER ABDOMINAL FOLDS. DENIES ANY NEEDS AT THIS TIME.
[2016-10-29 13:07] VITALS: BP 170/64
--- NOTE | 2016-10-29 16:00 | NUR ---
RESTING QUIETLY. DENIES ANY NEEDS AT PRESENT.
[2016-10-29 16:41] VITALS: BP 168/64
[2016-10-29 19:00] VITALS: BP 163/77
--- NOTE | 2016-10-29 19:15 | NUR ---
BEDSIDE REPORT RECEIVED AND CARE OF PT ASSUMED. PT LYING IN HIGH AC'S POSITOIN IN NYA NERISSA BED. IV IN LEFT AC PATENT WITH NS INFUSING AT 150 ML / HR. DRESSING ON LEFT LOWER LEG DRY AND INTACT. WILL MONITOR CLOSELY FOR NEEDS.
--- NOTE | 2016-10-29 19:15 | NUR ---
BEDSIDE REPORT RECEIVED AND CARE OF PT ASSUMED. PT LYING IN SEMI AC'S POSITION IN A [facility] [place] NERISSA BED. IV LEFT AC PATENT WITH NS INFUSING AT 50 ML / HR. WILL MONITOR CLOSLEY FOR NEEDS.
--- NOTE | 2016-10-29 20:50 | NUR ---
HS MEDICATIONS GIVEN. FSBS 106 THIS CHECK AND PT REFUSED LANTUS SCHEDULED AT THIS TIME. WILL CONTINUE TO MONITOR FOR NEEDS.
--- NOTE | 2016-10-29 20:55 | NUR ---
HS SNACK OF PUDDING AND JUICE GIVEN. WILL CONTINUE TO MONITOR FOR NEEDS.
[2016-10-30] VITALS: BP 141/66; BP 186/80
--- NOTE | 2016-10-30 01:45 | NUR ---
ASSISTED PT UP TO USE RESTROOM...VOIDED 400 ML YELLOW URINE. POSITIONED BACK IN BED FOR COMFORT. SIDE RAILS UP X2 FOR SAFETY.
[2016-10-30 04:00] VITALS: BP 177/88
--- NOTE | 2016-10-30 05:49 | NUR ---
FSBS 47 THIS CHECK. GAVE X2 ORANCE SHERBETS AND 8 OZ ORANGE JUICE. WILL RE-CHECK.
--- NOTE | 2016-10-30 06:59 | NUR ---
PATIENT SITTING UP IN BED WITH NO COMPLAINTS AT THIS TIME. IV INTACT. CALL LIGHT WITHIN REACH.
--- NOTE | 2016-10-30 07:15 | NUR ---
REPORT RECEIVED FROM DIRECTOR OF MANAGED CARE NURSE. CALL LIGHT IN REACH.
[2016-10-30 08:00] VITALS: BP 176/72
--- NOTE | 2016-10-30 09:34 | NUR ---
ASSESSMENT COMPLETED. AM MEDS ADMINISTERED. CALL LIGHT IN REACH. WILL CONTINUE WITH PLAN OF CARE.
--- NOTE | 2016-10-30 10:46 | NUR ---
LACTINEX PO. ZOSYN IVPB. HOME HEALTH NURSE IN ROOM AT THIS TIME. CALL LIGHT IN REACH.
--- NOTE | 2016-10-30 11:22 | NUR ---
ELEVATED PATIENT LEGS UP ON PILLOW PER REQUEST.
--- NOTE | 2016-10-30 12:43 | NUR ---
FSBS 157. REFUSED INSULIN BUT WANTED METFORMIN. FRESH ICE WATER TAKEN TO PATIENT.
--- NOTE | 2016-10-30 14:05 | NUR ---
DRSG TO LEFT LEG CHANGED. CALL LIGHT IN REACH.
--- NOTE | 2016-10-30 15:38 | NUR ---
GABAPENTIN AND MORPHINE PO. REFUSES LANHenrryUS. CALL LIGHT IN REACH.
[2016-10-30 16:00] VITALS: BP 152/74
--- NOTE | 2016-10-30 17:18 | NUR ---
EVENING MEDS ADMINISTERED. FSBS 106. NO COVERAGE REQUIRED. CALL LIGHT IN REACH.
--- NOTE | 2016-10-30 18:26 | NUR ---
NO CHANGES IN INITIAL ASSESSMENT. CALL LIGHT IN REACH. WILL CONTINUE WITH PLAN OF CARE.
--- NOTE | 2016-10-30 19:00 | NUR ---
BEDSIDE REPORT RECEIVED AND CARE OF PT ASSUMED. PT LYING IN SEMI AC'S POSITION ON [facility] BED WATCHING TV. IV IN LEFT AC PATENT WITH NS INFUSING AT 150 ML / HR. WILL MONITOR CLOSELY FOR NEEDS.
--- NOTE | 2016-10-30 19:30 | NUR ---
REPOSITIONED PT AND SUPPLIED X2 ADDITIONAL PILLOWS FOR COMFORT.
[2016-10-30 19:32] LABS: PLT FUNCT.(P2Y12) PLAVIX 346 PRU (194-418)
[2016-10-30 20:00] VITALS: BP 181/76
--- NOTE | 2016-10-30 20:30 | NUR ---
SPOKE TO RADIOLOGY WHO STATED CTA WILL BE PERFORMED IN THE AM ON THURSDAY. PT NPO AFTER MIDNIGHT. BUN / CREAT LABS REQUIRED PRIOR, AND ORDERED. PT HAS 20 GUAGE IV IN LEFT AC.
--- NOTE | 2016-10-30 20:40 | NUR ---
ASSISTED PT UP TO GO TO RESTROOM.
--- NOTE | 2016-10-30 20:54 | NUR ---
HS MEDICATIONS GIVEN. FSBS 109 THIS CHECK. PT DECLINED TO TAKE LANTUS TONIGHT. WILL CONTINUE TO MONITOR MARCELO FOR NEEDS.
--- NOTE | 2016-10-30 21:00 | NUR ---
HS SNACK OF PUDDING GIVEN TO PT. WILL CONTINUE TO MONITOR FOR NEEDS.
[2016-10-31] VITALS (7 sets, daily range): BP systolic 135–217; BP diastolic 55–82
--- NOTE | 2016-10-31 | NUR ---
NPO STATUS BEGINS NOW. SIGN POSTED ON DOOR.
--- NOTE | 2016-10-31 02:00 | NUR ---
GAVE ICE CREAM TO PT PER REQUEST. WILL CONTINUE TO MONITOR FOR NEEDS.
--- NOTE | 2016-10-31 06:00 | NUR ---
FSBS 114 THIS CHECK REQUIRING NO COVERAGE PER SLIDING SCALE.
--- NOTE | 2016-10-31 06:13 | NUR ---
PT AM BLOOD PRESSURE IS 191/82. GAVE CATAPRESS 0.1MG PO PER PRN ORDER WITH SIP OF WATER PT IS NPO.
[2016-10-31 07:13] LABS: CALC OSMOLALITY 279 mosm/kg (275-300); CALCIUM 8.3 mg/dL (8.5-10.1); CHLORIDE - SERUM 104 mmol/L (98-107); POTASSIUM - SERUM 3.9 mmol/L (3.5-5.1); SODIUM 141 mmol/L (136-145); UREA NITROGEN 8 mg/dL (7-18); eGFR NON AFRICAN AMERICAN 84 mL/min (90-120)
[2016-10-31 07:21] LABS: GLUCOSE 113 mg/dL (74-106)
--- NOTE | 2016-10-31 07:40 | NUR ---
REPORT RECEIVED FROM PRIMER SUPERVISOR NURSE. CALL LIGHT IN REACH.
--- NOTE | 2016-10-31 08:37 | NUR ---
ASSESSMENT COMPLETED. AM MEDS ADMINISTERED. CALL LIGHT IN REACH. BREAKFAST ORDERED. CALL LIGHT IN REACH. WILL CONTINUE WITH PLAN OF CARE.
--- NOTE | 2016-10-31 09:10 | NUR ---
PT ASLEEP IN BED WITH NO VISABLE SIGNS OF PAIN OR DISCOMFORT AT THIS TIME. BED IN LOW POSITION AND CALL LIGHT WITHIN REACH. WILL CONTINUE TO MONITOR.
--- NOTE | 2016-10-31 10:19 | NUR ---
HEBER PRATT OVER 4 HOURS. CALL LIGHT IN REACH.
--- NOTE | 2016-10-31 11:37 | NUR ---
FLORAJEN, METFORMIN, AND NORCO PO. FSBS 155. REFUSES INSULIN.
--- NOTE | 2016-10-31 13:39 | NUR ---
Nutrition Follow Up: Pt stated that his appetite is okay. He questioned renal ADA diet. Pt is eating 48% meal avg on a renal ADA diet. Wt loss since admit noted. No BM since admit. Labs reviewed. Meds noted. Will change diet to diabetic. Will provide selective menus and honor food preferences when able. RD following.
--- NOTE | 2016-10-31 13:44 | NUR ---
DRSG TO LEFT LEG CHANGED AND NEOSPORIN APPLIED.
--- NOTE | 2016-10-31 14:00 | NUR ---
VASCULAR NURSE IN ROOM TO DO MIDLINE. IV FLUIDS AND IV ABX INITIATED PER ORDER. URINAL GIVEN TO PATIENT TO COLLECT SAMPLE FOR UA AND CULTURE.
--- NOTE | 2016-10-31 14:47 | NUR ---
GABAPENTIN AND MORPHINE PO PER ORDER. CALL LIGHT IN REACH.
--- NOTE | 2016-10-31 16:50 | NUR ---
BLOOD SUGAR 180 PER ERNESTO CHONG. CALL LIGHT IN REACH.
--- NOTE | 2016-10-31 17:14 | NUR ---
VANC IVPB. METFORMIN PO. CALL LIGHT IN REACH.
--- NOTE | 2016-10-31 18:13 | NUR ---
NO CHANGES IN INITIAL ASSESSMENT. CALL LIGHT IN REACH. WILL CONTINUE WITH PLAN OF CARE.
--- NOTE | 2016-10-31 22:12 | NUR ---
REC'D SITTING UP IN BED. ALERT AND ORIENTED X4. NO DISTRESS NOTED. HELPED TO THE RESTROOM. WILL ADMIN PM/AM MEDS PRESCRIBED. BLD SUGAR WAS 136. PATIENT STATED" I DONT WANT TO TAKE MY LANTUS TONIGHT BC MY BLD SUGAR BOTTOMED OUT THE OTHER NIGHT AT 47. WILL HOLD AND WILL CONT TO MONITOR BLD SUGAR THROUGHOUT THE NIGHT. INSTRUCTED TO CALL IF NEEDED ANYTHING, VERBALIZED UNDERSTANDING. BED LOW, LOCKED, CALL LIGHT IN REACH. WILL CONT TO MONITOR.
[2016-11-01 04:00] VITALS: BP 163/95
--- NOTE | 2016-11-01 04:54 | NUR ---
MICHELLE BERNARD AT BEDSIDE ASSISTING PATIENT. NO VISIBLES SIGNS OF DISTRESS. BED IN LOWEST POSITION AND CALL LIGHT WITHIN REACH.
--- NOTE | 2016-11-01 07:30 | NUR ---
PATIENT RECEIVED ALERT IN MID AC POSITION. NO SIGNS OF DISTRESS NOTED. DENIES NEEDS. SIDE RAILS UP X2. BED IN LOW POSITION. CALL LIGHT IN REACH. WILL CONTINUE TO MONITOR.
--- NOTE | 2016-11-01 09:17 | NUR ---
ALERT IN BED. NO SIGNS OF DISTRESS NOTED. SCHEDULED MEDICATION ADMINISTERED. DRESSING TO LEFT LOWER LEG CHANGED. DENIES NEEDS. SIDE RAILS UP X2. BED IN LOW POSITION. CALL LIGHT IN REACH.
[2016-11-01 10:19] VITALS: BP 202/79
--- NOTE | 2016-11-01 11:30 | NUR ---
ALERT IN BED. ACCU CHECK 150. NO INSULIN REQUIRED PER SLIDING SCALE. DENIES NEEDS. SIDE RAILS UP X2. BED IN LOW POSITION. CALL LIGHT IN REACH.
[2016-11-01 14:08] VITALS: BP 141/91
--- NOTE | 2016-11-01 14:22 | NUR ---
ASSISTING WITH VENOUS REFLUX STUDY. PATIENT VERY UNCOMFORTABLE DURING AUGMENTATION. INFORMED PATIENT SEVERAL TIMES THAT IF IT WAS TOO UNCOMFORTABLE TO LET US KNOW AND WE WOULD DISCONTINUE. STUDY ALMOST COMPLETED WHEN PATIENT REQUESTED WE STOP SO WE STOPPED. Carolin JACKSON/Sony SCALES
--- NOTE | 2016-11-01 14:35 | NUR ---
IV TO LEFT AC LEAKING. IV D/C WITH CATH TIP INTACT. COVERED WITH GAUZE AND TAPE. NEW 20 GAUGE IV SITED TO RIGHT FOREARM X1 ATTEMPT. FLUSHES EASY WITH BRISK BLOOD RETURN PRESENT. SECURED WITH TAPE AND TEGADERM. IVF INFUSING WITHOUT DIFFICULTY. WELL TOLERATED.
[2016-11-01 17:15] VITALS: BP 140/87
--- NOTE | 2016-11-01 19:00 | NUR ---
BEDSIDE REPORT RECEIVED AND CARE OF PT ASSUMED. PT RESTING IN SEMI AC'S POSITION ON A [facility] BARIATRIC AIR BED. IV IN RIGHT FA PATENT WITH NS INFUSING AT 150 ML / HR. O2 IN USE VIA NC AT 4L. WILL MONITOR REBALEY FOR NEEDS.
[2016-11-01 20:00] VITALS: BP 178/91
[2016-11-01 20:58] LABS: APPEARANCE CLEAR (CLEAR); BILIRUBIN NEGATIVE (NEGATIVE); COLOR STRAW (YELLOW); GLUCOSE NEGATIVE (NEGATIVE); KETONE NEGATIVE (NEGATIVE); LEUKOCYTE ESTERASE NEGATIVE (NEGATIVE); NITRITE NEGATIVE (NEGATIVE); PROTEIN NEGATIVE (NEGATIVE); UROBILINOGEN NORMAL (NORMAL)
--- NOTE | 2016-11-01 21:28 | NUR ---
HS MEDICAITONS GIVEN. PT DECLINED TO TAKE LANTUS AT THIS TIME. WILL CONTINUE TO MONITOR FOR NEEDS. HS SNACK GIVEN PER DIET ORDERS.
--- NOTE | 2016-11-01 23:41 | NUR ---
FSBS THIS CHECK IS 67. GAVE X2 ORANGE JUICES. WILL CONTINUE TO MONITOR CLOSELY.
[2016-11-02] VITALS (7 sets, daily range): BP systolic 106–188; BP diastolic 55–102
--- NOTE | 2016-11-02 06:14 | NUR ---
STOOL COLLECTED FOR CDT TESTING AND DELIVERED TO LAB.
--- NOTE | 2016-11-02 07:15 | NUR ---
PATIENT RECEIVED IN HIGH AC POSITION RESTING QUIETLY. RESPIRATIONS EVEN AND UNLABORED. DENIES NEEDS. SIDE RAILS UP X2. BED IN LOW POSITION. CALL LIGHT IN REACH.
--- NOTE | 2016-11-02 08:35 | NUR ---
PATIENT ALERT IN BED. NO SIGNS OF DISTRESS NOTED. ACCU CHECK 217. SCHEDULED MEDICATION ADMINISTERED. DENIES NEEDS. SIDE RAILS UP X2. BED IN LOW POSITION. CALL LIGHT IN REACH.
--- NOTE | 2016-11-02 12:12 | NUR ---
ACCU CHECK 256. INSULIN PER SLIDING SCALE. SIDE RAILS UP X2. BED IN LOW POSITION. CALL LIGHT IN REACH.
--- NOTE | 2016-11-02 15:49 | NUR ---
BP 188/78. CATAPRES PER PRN ORDER. NO NEEDS VOICED. SIDE RAILS UP X2. BED IN LOW POSITION. CALL LIGHT IN REACH. WILL CONTINUE TO MONITOR.
--- NOTE | 2016-11-02 18:00 | NUR ---
ALERT IN BED VISITING WITH GUEST. NO SIGNS OF DISTRES NOTED. ACCU CHECK 147. DENIES NEEDS. BED IN LOW POSITION. CALL LIGHT IN REACH.
--- NOTE | 2016-11-02 19:00 | NUR ---
REPORT RECEIVED AND CARE OF PATIENT ASSUMED. PT LYING IN SEMI AC'S POSITION ON BARIATRIC AIR BED. IV IN RIGHT FA PATENT WITH NS INFUSING AT 150 ML / HR. O2 IN USE AT 4L VIA NC. WILL MONITOR CLOSELY FOR NEEDS.
--- NOTE | 2016-11-02 20:57 | NUR ---
HS MEDICATIONS GIVEN. FSBS 89 THIS CHECK. GAVE SNACK OF X2 SHERBETS AND VANILLA WAFERS. WILL CONTINUE TO MONITOR CLOSELY FOR NEEDS.
--- NOTE | 2016-11-02 22:08 | NUR ---
PT BATHED AND SHAVED HIMSELF. GOWN AND ALL BEDDING CHANGED.
[2016-11-03] VITALS: BP 171/76
--- NOTE | 2016-11-03 00:15 | NUR ---
GAVE SANDWICH PER PT REQUEST.
[2016-11-03 04:00] VITALS: BP 178/83
--- NOTE | 2016-11-03 08:02 | NUR ---
PT SEEN AND ASSESSED. COMPLAINTS OF BILAT FOOT PAIN-TOO EARLY FOR PAIN MEDS AND PATIENT AWARE. BIG BOY BARIATRIC BED IN ROOM. DRESSING NOTED TO LEFT CALF- WILL CHANGE. DRESSING CLEAN DRY AND INTACT. OXYGEN AT 4LNC. CALL LIGHT IN REACH
[2016-11-03 08:17] VITALS: BP 215/84
[2016-11-03 12:03] VITALS: BP 198/83
--- NOTE | 2016-11-03 15:24 | NUR ---
PT HAS VISITOR AT BEDSIDE. NO COMPLAINTS AT PRESENT. LEG WOUND REDRESSED ORDERED. NO DRAINAGE NOTED ON DRESSING FROM THIS AM. CALL LIGHT IN REACH
[2016-11-03 16:14] VITALS: BP 145/88
[2016-11-03 20:00] VITALS: BP 232/88
--- NOTE | 2016-11-03 20:00 | NUR ---
ASSESSMENT PER FLOWSHEET. DRESSING TO LEFT LOWER LEG C/D/I. DARK BLACK SPOT TO SECOND TOE RT FOOT. NO DRAINAGE. SALINE LOCK PATENT RT FOREARM.
--- NOTE | 2016-11-03 21:30 | NUR ---
MEDS GIVEN PER MAY. NSGK=[id number] NO COVERAGE NEEDED. PT REQUESTING SHOWER. UP AD THOM TO BR INBOUND INGREDIENT LOGISTICS SPECIALIST TAKEN AND LINENS CHANGED BY DIRECTOR OF STUDENT AID. DRESSING CHANGED TO SORE ON LEFT LOWWER LEG.
[2016-11-04] VITALS: BP 121/70
--- NOTE | 2016-11-04 | NUR ---
EYES CLOSED RESPIRATIONS WITH EASE AND UNLABORED.
--- NOTE | 2016-11-04 02:55 | NUR ---
C/O PAIN IN LEGS NORCO TAB ONE PO GIVEN BY TERRI OROZCO FOR PAIN CONTROL.
[2016-11-04 04:00] VITALS: BP 212/84
--- NOTE | 2016-11-04 04:41 | NUR ---
EYES CLOSED RESPIRATIONS WITH EASE AND UNLABORED.
--- NOTE | 2016-11-04 07:38 | NUR ---
RECEIVED REPORT, ASSUMED CARE OF PT. R FOREARM IV SALINE LOCKED, DRSG CLEAN, DRY AND INTACT. O2 VIA NASAL CANNULA ORDERED. NO COMPLAINTS AT THIS TIME. BED IN LOWEST POSITION, SIDE RAILS UP X 2, CALL LIGHT WITHIN REACH.
[2016-11-04 09:29] VITALS: BP 212/84
--- NOTE | 2016-11-04 11:06 | NUR ---
Patient Name: BRIAN PABLO Admission Status: ER Accout number: [id number] Admission Date: 10-28-2016 : 1965 Admission Diagnosis:TYPE 2 DIABETES W DIABETIC PERIPHERAL ANGIOPATHY W DEANDRE Attending: CARTER Current LOS: 7 Anticipated DC Date: Planned Disposition: Home Primary Insurance: MEDICAID [place] Discharge Planning Comments: CM met with patient to assess discharge planning needs. Patient states that he lives at home with nurses who are there 12 hours a day 7 days a week and do everything for him. He stated that he would find someone to take him home when the time came, but did not give me a name. Patient stated that his home was safe to return too. He was admitted to [facility] within the past month for heart stents. Patient stated he is on home O2 from [facility] at 4L. He has an electric wheelchair, cpap, walker, nebulizer. Patient denies any HH or PT at home, states his nurses can and will do everything he needs. CM will continue to follow and assist as needed. PCP: Timothy Nettles [facility] (nursing care) Senior Mortgage Underwriter: Michelle Lang * Is the patient Alert and Oriented? Yes 0 * How many steps to enter\exit or inside your home? 0 0 * PCP TIMOTHY 0 * Pharmacy [facility] * Preadmission Environment Home Alone 0 * ADLs Total Dependent 0 * Equipment Bedside Commode CPAP Elevated [place] Seat Nebulizer Oxygen Rolling Walker Shower Chair Walker Wheelchair 0 * Other Equipment ELECTRIC WHEELCHAIR 0 * List name and contact numbers for known caregivers / representatives who currently or will assist patient after discharge: [facility]- NURSING AT HOME 12HRS A DAY 7 DAYS A WEEK 0 * Community resources currently utilized Private Duty Care 0 * Please name any agencies selected above. [facility] 0 * Additional services required to return to the preadmission environment? No 0 * Can the patient safely return to the preadmission environment? Yes 0 * Has this patient been hospitalized within the prior 30 days at any hospital? Yes 0 Grand Total: 0
--- NOTE | 2016-11-04 12:02 | NUR ---
Wound care consult: Noted dry necrotic skin to tip on #2 toe on right foot. No drainage or odor noted. Measures 1cm x 1cm. Recommend keeping covered for protection and keep foot elevated. Wound care will continue monitoring.
[2016-11-04] MEDS ORDERED: AUGMENTIN 875-11 TAB PO (12:14)
[2016-11-04 12:24] VITALS: BP 203/77
--- NOTE | 2016-11-04 12:45 | NUR ---
PT RESTING IN ROOM, EYES SHUT. NO SIGNS OF ACUTE DISTRESS. BED IN LOWEST POSITION, SIDE RAILS UP X 2, CALL LIGHT WITHIN REACH.
--- NOTE | 2016-11-04 14:00 | NUR ---
CM MET WITH PATIENT TO SPEAK WITH ABOUT HOME HEALTH. PATIENT HAS CHOOSEN [facility]. REFERRAL SENT
--- NOTE | 2016-11-04 14:10 | NUR ---
PT LEFT FLOOR FOR OR.
--- NOTE | 2016-11-04 15:31 | NUR ---
PT RESTING WITH EYES SHUT. NO SIGNS OF ACUTE DISTRESS. BED IN LOWEST POSITION, SIDE RAILS UP X 2, CALL LIGHT WITHIN REACH.
--- NOTE | 2016-11-04 15:32 | NUR ---
DRSG CHANGE TO LEFT LOWER LEG, CLEAN, DRY AND INTACT.
[2016-11-04 16:14] VITALS: BP 196/68
--- NOTE | 2016-11-04 16:25 | NUR ---
patient being discharged home today with [facility] and [facility] family to drive home
--- NOTE | 2016-11-04 16:49 | NUR ---
PT GIVEN ALL DISCHARGE INSTRUCTIONS VERBALLY AND COPY, VERBALIZES UNDERSTANDING. R FOREARM IV D/C'D, CATHETER INTACT. DRSG APPLIED. NO NEEDS VOICED.
--- NOTE | 2016-11-04 17:17 | NUR ---
PT TRANSPORTED TO FAMILY VEHICLE, PERSONAL BELONGINGS WITH PT. NO COMPLAINTS OR NEEDS AT THIS TIME. ALL QUESTIONS ANSWERED.
== END 2016-11-04 17:18 | disposition home health service (06) | DRG 300 ==
LOC: D.ER 23:41 → D.MS 10-28 01:29
PROVIDERS: Physician Assistant Medical; Surgery; ADMIT Legal Medicine
DX: I75.021 Atheroembolism of right lower extremity (principal); E11.52 Type 2 diabetes mellitus with diabetic peripheral angiopathy with gangrene; Z68.45 Body mass index [BMI] 70 or greater, adult; L03.115 Cellulitis of right lower limb; E11.42 Type 2 diabetes mellitus with diabetic polyneuropathy; Z79.4 Long term (current) use of insulin; E66.01 Morbid (severe) obesity due to excess calories; G89.4 Chronic pain syndrome; E83.119 Hemochromatosis, unspecified; Z86.73 Personal history of transient ischemic attack (TIA), and cerebral infarction without residual deficits; E11.628 Type 2 diabetes mellitus with other skin complications

== ENCOUNTER 2017-02-01 16:51 | Inpatient (IN) | payer MEDICAID ==
[~2017-02-01] VITALS: Ht 175.3 cm; Wt 226.5 kg
[~2017-02-01 16:51] MED LIST changes: +APIDRA100 U/M1 SQ; +AUGMENTIN 875-11 TAB PO; +CATAPRES0.1 MG PO; +LANTUS SOL100 UNIT/1 SC; +MS CONTIN60 MG PO
[2017-02-01 18:09] LABS: BASOPHILS 0.3 % (0-2); EOSINOPHILS 6.6 % (0-7); HEMATOCRIT 33.5 % (42.0-54.0); HEMOGLOBIN 10.8 g/dL (13.5-17.5); IMMATURE GRANULOCYTES 0.2 % (0-5); LYMPHOCYTES 37.1 % (15-50); MCH 27.3 pg (26.0-34.0); MCHC 32.2 g/dL (31.0-37.0); MCV 84.6 fL (80.0-100.0); MEAN PLATELET VOLUME 11.5 fL (7.4-10.4); MONOCYTES 8.9 % (2-11); NEUTROPHILS 46.9 % (40-80); PLATELET COUNT 113 10x3/uL (130-400); RBC 3.96 10x6/uL (4.20-6.10); RDW 16.5 % (11.5-14.5); WBC 5.7 10x3/uL (4.8-10.8)
[2017-02-01 18:11] LABS: APPEARANCE CLEAR (CLEAR); BILIRUBIN NEGATIVE (NEGATIVE); COLOR STRAW (YELLOW); GLUCOSE NEGATIVE (NEGATIVE); KETONE NEGATIVE (NEGATIVE); NITRITE NEGATIVE (NEGATIVE); PROTEIN NEGATIVE (NEGATIVE); SPECIFIC GRAVITY 1.005 (1.005-1.020); UROBILINOGEN NORMAL (NORMAL)
[2017-02-01 18:25] LABS: ALBUMIN 2.9 g/dL (3.4-5.0); ALKALINE PHOSPHATASE 65 U/L (46-116); ALT (SGPT) 23 U/L (10-68); BILIRUBIN - TOTAL 0.33 mg/dL (0.2-1.3); CALC OSMOLALITY 280 mosm/kg (275-300); CALCIUM 8.7 mg/dL (8.5-10.1); CARBON DIOXIDE 30.4 mmol/L (21.0-32.0); CHLORIDE - SERUM 106 mmol/L (98-107); CREATININE - SERUM 0.9 mg/dL (0.6-1.3); GLUCOSE 77 mg/dL (74-106); POTASSIUM - SERUM 4.2 mmol/L (3.5-5.1); PROTEIN - SERUM 7.1 g/dL (6.4-8.2); SODIUM 142 mmol/L (136-145); UREA NITROGEN 10 mg/dL (7-18); eGFR NON AFRICAN AMERICAN > 90 mL/min (90-120)
[2017-02-01 18:33] LABS: KETONE - SERUM NEGATIVE (NEGATIVE)
[2017-02-01 18:36] LABS: CKMB 3.1 U/L (0.0-3.6); CREATINE KINASE 251 UL (21-232); PRO BNP 367 pg/mL (0-125)
[2017-02-01 18:37] LABS: TROPONIN-I < 0.017 ng/mL (0.000-0.060)
--- NOTE | 2017-02-01 21:45 | NUR ---
PT ARRIVES VIA STRETCHER ACCOMPANIED BY WARP DRAWER. ASSISTED INTO BED. VSS, AFEBRILE. RESP EVEN AND UNLABORED. INITIAL ASSESSMENT COMPLETED AND MEDICATIONS RECONCILED. HISTORY OBTAINED. LANDRY TO BSD, DRAINS LARGE AMOUNT CLEAR YELLOW URINE. 1825 ML DRAINED FROM LANDRY BAG. NO IMMEDIATE NEEDS VOICED. WILL CONT TO MONITOR.
[2017-02-01 23:07] VITALS: BMI 74.0
[2017-02-01 23:45] VITALS: BP 168/62
--- NOTE | 2017-02-02 02:20 | NUR ---
PT SLEEPING, RESTING WELL. NO C/O OR DISTRESS NOTED. WILL CONT TO MONITOR.
[2017-02-02 03:41] VITALS: BP 171/65
--- NOTE | 2017-02-02 07:39 | NUR ---
AM ROUNDING- RECEIVED REPORT FROM FITNESS SUPERVISOR NURSE MARLON. PT IS CURRENTLY SITTING UP IN BED WITH EYES OPEN RESTING. PT ASKED ME WHAT HE WAS HERE FOR. I INFORMED HIM THAT PER REPORT, HE IS HERE FOR AMS/HYPOGLYCEMIA. PT ASKED WHAT HYPOGLYCEMIA WAS AND THIS NURSE EXPLAINED IT TO HIM. PTS BS IS 111 THIS AM SO WAS NO COVERED PER SLIDING SCALE. PT IS ALERT AND ORIENTED. ON 02 AT 4L VIA NC. NO MONITOR. IV SEEN TO RIGHT FOREARM WITH D5NS RUNNING AT 75CC. LANDRY CATHETER SEEN WITH CLEAR, YELLOW URINE. THIS NURSE EMPTIED 1,050CC FROM LANDRY BAG. NO NEED AT THIS CURRENT TIME. WILL CONTINUE TO MONITOR AND CONTINUE WITH PLAN OF CARE.
[2017-02-02 08:09] VITALS: BP 192/58
--- NOTE | 2017-02-02 10:30 | NUR ---
SPOKE WITH DR. ARNOLD WALDRON NURSE. NEW ORDERS RECEIVED.
--- NOTE | 2017-02-02 11:28 | NUR ---
CALLED DOCTOR KUMAR WALDRON NURSE (VANITA GAVE CELL PHONE NUMBER PRIOR ON SHIFT) TO SEE ABOUT GETTING PT SOMETHING FOR DVT PROPHYLAXIS. WILL AWAIT CALLBACK. WILL CONTINUE TO MONITOR.
--- NOTE | 2017-02-02 11:42 | NUR ---
RECEIVED CALLBACK FROM DR. JOSE M WALDRON NURSE. RECEIVED TELEPHONE ORDERS FOR LOVENOX 40MG DAILY.
[2017-02-02 11:46] VITALS: BP 172/63
[2017-02-02 13:35] VITALS: Ht 175.3 cm; Wt 226.5 kg
[2017-02-02 16:51] VITALS: BP 161/59
--- NOTE | 2017-02-02 18:17 | NUR ---
PT IS CURRENTLY SITTING UP IN BED WATCHING TV. PT DENIES ANY NEED AT THIS TIME. WILL CONTINUE TO MONITOR.
[2017-02-02 20:30] VITALS: BP 190/61
[2017-02-02 23:50] VITALS: BP 141/50
--- NOTE | 2017-02-03 00:15 | NUR ---
ROUNDING ON PT'S MADE. NO NEEDS VOICED. DENIES ANY CURRENT C/O PAIN. TECHNICAL INTERN IN ROOM TO DO VS. CALL LIGHT WITHIN REACH. NURSE STATES NO CHANGES NOTED SINCE INITIAL ASSESSMENTS. WILL CONT TO MONITOR.
--- NOTE | 2017-02-03 04:37 | NUR ---
UNABLE TO OBTAIN A WEIGHT ON PATIENT, BED SCALE OR STAND SCALE WILL NOT REGISTAR. PATIENT STATES WEIGHT AT 500 POUNDS.
[2017-02-03 05:10] VITALS: BP 145/58
--- NOTE | 2017-02-03 07:41 | NUR ---
AM ROUNDS - PT IN BED AND AWAKE AT THIS TIME. LANDRY. A&O. 4L O2 VIA NC. IV TO RIGHT FA, SL. BED AT LOWEST POSITION. CALL MARINELLI IN USE/REACH. SIDE RAILS UP X2. WILL CONTINUE TO MONITOR.
[2017-02-03 08:11] VITALS: BP 228/85
[2017-02-03 11:57] VITALS: BP 180/78
--- NOTE | 2017-02-03 12:56 | NUR ---
Nutrition Consult: Consult received for DM education. Pt stated that he eats 1 meal (provided by [employer] Whe[employer]) and several fruit cups per day. He said that he also drinks a large amount of orange juice each day. Pt stated that he cannot afford to buy any more food than this. He said that he checks his blood sugar daily. Attempted to encourage pt to eat 3 meals and 3 snacks per day but pt reminded me that he could not afford to eat this regimen. Encouraged pt to d/c juice and decrease amount of fruit cups he eats daily; suggested maybe he could buy other things instead of these. Pt repeatedly expressed his discouragement over his health and his situation. Provided pt with written info on diabetes. Pt displayed fair understanding of material presented. Expect fair to poor compliance given pt situation. RD spoke with Case Management regarding pt situation, lack of food in home. Thank you for the consult. Will continue to monitor pt progress.
--- NOTE | 2017-02-03 15:55 | NUR ---
Patient Name: BRIAN PABLO Admission Status: ER Accout number: [id number] Admission Date: 02-01-2017 : 1965 Admission Diagnosis: Attending: SYD AGUIRRE Current LOS: 2 Anticipated DC Date: Planned Disposition: Home Primary Insurance: MEDICAID [place] Discharge Planning Comments: * Is the patient Alert and Oriented? Yes 0 * How many steps to enter\exit or inside your home? NONE 0 * PCP DR. AGUIRRE 0 * Pharmacy [facility] 0 * Preadmission Environment Home Alone 0 * ADLs Partial Dependent 0 * Partial ADLs (Assistance needed) Ambulation Bathing Dressing Medication Management Toileting Transfers 0 * Equipment Bedside Commode CPAP Elevated [place] Seat Nebulizer Oxygen Rolling Walker Shower Chair Walker Wheelchair (ELECTRIC) 0 * Other Equipment HOME AND PORTABLE OXYGEN [facility] - MEDICAL EQUIPMENT PROVIDER 0 * List name and contact numbers for known caregivers / representatives who currently or will assist patient after discharge: BYRON PABLO BROTHER, 0 * Community resources currently utilized Private Duty Care 0 * Please name any agencies selected above. [facility] NURSING AT HOME - 12 HOURS PER DAY, 7 DAYS PER WEEK 0 * Additional services required to return to the preadmission environment? No 0 * Can the patient safely return to the preadmission environment? Yes 0 * Has this patient been hospitalized within the prior 30 days at any hospital? No 0 CM MET WITH PT IN ROOM TO DISCUSS DISCHARGE PLANNING AND NEEDS. PT REPORTS LIVING AT HOME ALONE AND DEPENDENT ON HIS CAREGIVERS FROM [facility] EVERYDAY. PT NEEDS ASSISTANCE WITH EVERYTHING OTHER THAN ACTUALLY EATING. PT REPORTS HAVING ALL NEEDED MEDICAL EQUIPMENT OTHER THAN A BERIATRIC HOSPITAL BED THAT DR. AGUIRRE ORDERED 3-4 MONTHS AGO FROM [facility]. CM DISCUSSED AVAILABILITY OF HOME HEALTH, REHAB SERVICES AND MEDICAL EQUIPMENT. PT DENIES DISCHARGE NEEDS, REPORTS PLAN TO RETURN HOME AT DISCHARGE, STATES HIS BROTHER OR CAREGIVERS WILL PICK HIM UP IN THE [place] WITH HIS ELECTRIC WHEELCHAIR. PT ASKED CM TO CALL [facility] TO FIND OUT WHAT THE PROBLEM WAS FOR THE HOME HOSPITAL BED. CM CALLED [facility], , WAS ADVISED THAT [facility] HAS SUBMITTED THE PREAUTHORIZATION TO MEDICAID AND THEY ARE WAITING FOR MEDICAID APPROVAL TO PROVIDE THE BED. CM NOTIFIED PT. PT ASKED TO GET A BERIATRIC BED HERE THE CURRENT BED WAS PAINFUL; CM NOTIFIED BEDSIDE NURSE, SOFT DRINK POWDER MIXER NURSE AND WOUND CARE NURSE. PT PLANS TO DISCHARGE HOME WITH CAREGIVING SERVICES THROUGH [facility]. PT DENIES NEEDS AT THIS TIME. CM TO FOLLOW AND ASSIST IF NEEDED. School Operations Manager: Raji Phelps
[2017-02-03 16:13] VITALS: BP 110/59
--- NOTE | 2017-02-03 17:22 | NUR ---
PT IN BED WITH NO NEEDS AT THIS TIME. WILL CONTINUE TO MONITOR
--- NOTE | 2017-02-03 20:18 | NUR ---
PT IN BED ON TELEPHONE. DENIES NEEDS AT THIS TIME.
[2017-02-03 20:55] VITALS: BP 152/61
[2017-02-04 00:45] VITALS: BP 135/62
--- NOTE | 2017-02-04 04:25 | NUR ---
RESTING IN BED WITH EYES CLOSED. NO S/S OF DISTRESS OBSERVED. O2@ 4 LITERS PER N/C. RESP. EVEN AND UNLABORED. IV TO RIGHT FA AND SALINE LOCKED. CHECKED FOR PATENCY. LANDRY CATH INTACT AND DRAINING CLEAR YELLOW URINE TO BED SIDE DRAINAGE SYSTEM. CALL LIGHT AND OVERBED TABLE IN REACH.
[2017-02-04 06:12] VITALS: BP 143/77; BP 161/86
[2017-02-04 07:47] VITALS: BP 175/84
--- NOTE | 2017-02-04 08:30 | NUR ---
AM ROUNDS - PT IN BED AND AWAKE AT THIS TIME. O2 AT 4L VIA NC. IV TO RIGHT FA, SL. LANDRY DRAINING. PT IS A&O. BED AT LOWEST POSITION. CALL MARINELLI IN USE/REACH. SIDE RAILS UP X2. NO NEEDS AT THIS TIME. WILL CONTINUE TO MONIOTR
[2017-02-04 11:48] VITALS: BP 136/66
[2017-02-04 16:09] VITALS: BP 141/66
--- NOTE | 2017-02-04 18:22 | NUR ---
PT IN BED AT THIS TIME WITH NO NEEDS. WILL CONTINUE TO MONITOR
[2017-02-04 21:12] VITALS: BP 137/47
[2017-02-05 00:52] VITALS: BP 126/65
--- NOTE | 2017-02-05 05:23 | NUR ---
ADJUNCT TEACHER AT BEDSIDE TO OBTAIN VITALS, CALL LIGHT IN REACH. WILL CONTINUE WITH PLAN OF CARE.
[2017-02-05 05:53] VITALS: BP 129/63
--- NOTE | 2017-02-05 07:15 | NUR ---
REPORT RECEIVED. RR EVEN AND UNLABORED. PT DENIES NEEDS AT THIS TIME. WILL CTM.
[2017-02-05 08:00] VITALS: BP 178/70
--- NOTE | 2017-02-05 11:00 | NUR ---
CHECKED PTS BS. WILL COVER PER SS. PT DENIES OTHER NEEDS AT THIS TIME, FAMILY AT BEDSIDE, WILL CTM.
[2017-02-05 13:20] VITALS: BP 140/52
[2017-02-05 16:47] VITALS: BP 155/59
--- NOTE | 2017-02-05 18:30 | NUR ---
PT RESTING QUILETY, RR EVEN AND UNLABORED. PT DENIES NEEDS AT THIS TIME. WILL GIVE REPORT ON PT CONDTION FOR THE DAY.
[2017-02-05 20:35] VITALS: BP 182/89
[2017-02-06 00:50] VITALS: BP 138/72
--- NOTE | 2017-02-06 02:49 | NUR ---
CALL LIGHT IN REACH, WILL CONTINUE WITH PLAN OF CARE.
[2017-02-06 05:12] VITALS: BP 107/86
[2017-02-06 08:00] VITALS: BP 127/61
--- NOTE | 2017-02-06 08:02 | NUR ---
AM ROUNDS - PT IN BED AND APPEARS TO BE SLEEPING AT THIS TIME WITH EQUAL AND NON LABORED BREATHING. IV TO RIGHT FA, SL. O2 AT 4L VIA NC. BED AT LOWEST POSITION. CALL MARINELLI IN USE/REACH. SIDE RAILS UP X2. WILL CONTINUE TO MONITOR
[2017-02-06] MEDS ORDERED: NORVASC10 MG PO (10:23)
[2017-02-06] MEDS ORDERED: CATAPRES0.2 MG PO (10:24)
[2017-02-06] MEDS ORDERED: ALDACTONE25 MG PO (10:24)
[2017-02-06] MEDS ORDERED: LISINOPRIL10 MG PO (10:24)
[2017-02-06] MEDS ORDERED: HUMULIN R100 U/ML SC (10:26)
[2017-02-06] MEDS ORDERED: MIRALAX17 GM PO (10:27)
[2017-02-06] MEDS ORDERED: LASIX20 MG PO (10:27)
[2017-02-06] MEDS ORDERED: LANTUS INSULIN10 ML SC (10:27)
--- NOTE | 2017-02-06 14:17 | NUR ---
D/C - WRITTENA ND VERBAL D/C INSTRUCTIONS GIVEN TO PT. IV FROM RIGHT FA D/C, CATH TIP INTACT, 2X2 DRESSING APPLIED AND SECURED WITH TAPE. LANDRY D/C, PT TOLERATED WELL. PT LEFT FLOOR VIA WHEELCHAIR WITH NURSE.
--- NOTE | 2017-02-09 09:02 | EC ---
PATIENT:BRIAN PABLO DATE OF SERVICE: 02/01/17 SEX: M MEDICAL RECORD: [id number] DATE OF : [birth year] LOCATION:D.M2 D.210 AGE OF PATIENT: 51 ADMISSION DATE: 02/01/17 REFERRING PHYSICIAN: INTERPRETING PHYSICIAN: DANAY TURCIOS MD ECHOCARDIOGRAM REPORT ECHO CHARGES 4 ECHO COMPLETE CLINICAL DIAGNOSIS: CHF ECHOCARDIOGRAPHIC MEASUREMENTS (adult normal given) AC root (d.<3.7cm) 3.2 cm LV Septum d (<1.2 cm> 1.2 cm Valve Excursion 2.2 cm LV Septum (systole) 1.8 cm Left Atria (s.<4.0cm> 4.1 cm LVPW d(<1.2cm) 1.2 cm RV (d.<2.3cm) 2.6 cm LVPW (sytole) 1.9 cm LV diastole(<5.6CM) 5.3 cm MV E-F(>70mm/sec) cm LV systole 4.0 cm LVOT Diameter 2.3 cm MV exc.(>10mm) cm Est.ejection fraction (50-75%) % Pericardial Effusion N DOPPLER: LVIT cm/sec A 69.0 cm/sec E 121 cm/sec LA cm/sec RVSP mmHg LVOT 106 cm/sec AOP1/2T m/s Asc. Ao 152 cm/sec RVOT 107 cm/sec RA cm/sec PA 104 cm/sec AV Gradient Peak 9.2 mmHg AV Mean 4.8 mmHg AV Area 2.6 cm MV Gradient Peak 6.1 mmHg MV Mean 2.5 mmHg MV Area cm COMMENTS: Pipeline Engineer: Bob BLANCOOE Occ Therapy Asst: 3 Dr. Vásquez TAPE# PACS DATE OF SERVICE: 02/02/2017 Echocardiogram FINDINGS: 1. Left ventricular chamber size is within normal limits. Left ventricular systolic function is normal. Overall ejection fraction estimated at 55%. 2. Left atrium is mildly enlarged at 4.1 cm. Right atrium and right ventricular chamber sizes are within normal limits. 3. Valvular structures have normal structure and motion. ECHOCARDIOGRAM REPORT [id number] BRIAN PABLO 4. Doppler interrogation only reveals trace mitral regurgitation. No other valvular insufficiency or stenosis. Pulmonary systolic pressure is normal estimated at 20 mmHg. 5. No evidence of pericardial effusion or left ventricular thrombus. TRANSINT:[id number] Voice Confirmation ID: [id number] DOCUMENT ID: [id number] DANAY TURCIOS MD at 0902 CC: [id number] DICTATION DATE: 02/03/17 1057 GREEN CHAIN MARKER: 02/03/17 1109 DIS IN 02/06/17 [place] [id number] [place] [id number]
--- NOTE | 2017-02-11 13:00 | CN ---
PATIENT NAME:BRIAN PABLO MEDICAL RECORD: [id number] : 67 LOCATION:D. D.2105 ADMIT DATE: 02/01/17 ACCOUNT: [id number] CONSULTING PHYSICIAN: MONICA GODFREY MD REFERRING PHYSICIAN: SYD AGUIRRE MD DATE OF CONSULTATION: 02/02/2017 HISTORY OF PRESENT ILLNESS: A 51-year-old gentleman with a known history of coronary artery disease status post PTCA stent to LAD back in March has been having problems with difficult to control hypertension as well as some dyspnea. Dyspnea may be at baseline. This is multifactorial. LV function has systolically remained normal. He does suffer from morbid obesity, peripheral neuropathy, as well as significant deconditioning. We are asked to see him concerning his cardiovascular status. PAST MEDICAL HISTORY: Includes: 1. History of coronary artery disease as described above. 2. Chronic pain syndrome. 3. Hypertension. 4. Hyperlipidemia. 5. Diabetes mellitus. MEDICATIONS: Include [place] 10/325 one q.6 hours, insulin per scale, Ambien 10 mg p.o. q.h.s., Lyrica 150 b.i.d., morphine, MS Contin 60 t.i.d., Neurontin 300 t.i.d., clonidine 0.1 b.i.d., lisinopril 30 b.i.d., labetalol 300 b.i.d., Plavix 75 every day. ALLERGIES: INCLUDE DARVOCET, TORADOL, ACETAMINOPHEN. SOCIAL HISTORY: He is a nonsmoker, nondrinker. Needs assistance with ADLs on occasion due to multiple comorbidities. REVIEW OF SYSTEMS: The patient reports easy bruising but reports no swollen glands. The patient reports no fever, no night sweats, no significant weight gain, no significant weight loss. No significant exercise tolerance. The patient reports no dry eyes, no irritation, no vision change. Patient reports no difficulty hearing and no ear pain. Patient reports no frequent nose bleeds or nose and sinus problems. Patient reports on arm pain on exertion. No shortness of breath while lying down. No history of heart murmur. Patient reports no cough, no wheezing or coughing up blood. Patient reports no abdominal pain, no vomiting. Normal appetite. No diarrhea and not vomiting blood. No nausea and no constipation. Patient reports no incontinence. No difficulty urinating. No hematuria. No increased frequency. Patient reports no muscle aches. No weakness, no arthralgias, no back pain. No swelling of the extremities. Patient reports no abnormal mole, no jaundice, no rashes. Reports no loss of consciousness. No weakness and no numbness. No seizures, dizziness, or headaches. The patient reports no depression, no sleep disturbance, feeling safe in a relationship and no alcohol abuse. Patient reports on fatigue. Reports no runny nose or sinus pressure. No itching, no hives, and no frequent sneezing. PHYSICAL EXAMINATION: GENERAL: Obese gentleman in no acute distress. VITAL SIGNS: Blood pressure 192/58, pulse 70 and regular. HEENT: Normocephalic, atraumatic. CONSULT REPORT [id number] BRIAN PABLO NECK: No JVD or bruit. HEART: Regular, S4 gallop is noted. LUNGS: Good air excursion. ABDOMEN: Soft, nontender. EXTREMITIES: Pulse 2+ with no edema. LABORATORY DATA: ECG without acute change. BNP is minimally elevated. IMPRESSION: Dyspnea on exertion, perhaps mild component of diastolic dysfunction; however, given minimally elevated BNP, suspect significant pulmonary deconditioning, etc. as well. We will add Aldactone to hopefully provide some support for systolic hypertension as well as volume overload. TRANSINT:[id number] Voice Confirmation ID: [id number] DOCUMENT ID: [id number] MONICA GODFREY MD at 1300 CC: [id number] DICTATION DATE: 02/02/17 0835 HOT WALKER: 02/02/17 1004 DIS IN 02/06/17 [place] [id number] [place] [address]
== END 2017-02-06 14:19 | disposition home or self-care (01) | DRG 638 ==
LOC: D.ER 16:51 → OBSVTIME 19:28 → D.M2 19:28 → D.MS 19:28 → D.M2 19:29
PROVIDERS: Family Medicine; Physician Assistant Medical; ADMIT Legal Medicine
DX: E11.65 Type 2 diabetes mellitus with hyperglycemia (principal); L97.418 Non-pressure chronic ulcer of right heel and midfoot with other specified severity; L03.115 Cellulitis of right lower limb; Z68.45 Body mass index [BMI] 70 or greater, adult; R41.82 Altered mental status, unspecified; E11.40 Type 2 diabetes mellitus with diabetic neuropathy, unspecified; E11.319 Type 2 diabetes mellitus with unspecified diabetic retinopathy without macular edema; E11.621 Type 2 diabetes mellitus with foot ulcer; E11.628 Type 2 diabetes mellitus with other skin complications; I10 Essential (primary) hypertension; E66.01 Morbid (severe) obesity due to excess calories; E87.70 Fluid overload, unspecified

== ENCOUNTER 2017-02-11 13:15 | Emergency (ER) | payer MEDICAID ==
[2017-02-02 13:35] VITALS: BMI 73.8
[~2017-02-11 13:15] MED LIST changes: +ALDACTONE25 MG PO; +CATAPRES0.2 MG PO; +HUMULIN R100 U/ML SC; +LANTUS INSULIN10 ML SC; +LASIX20 MG PO; +LISINOPRIL10 MG PO; +MIRALAX17 GM PO; +NORVASC10 MG PO
== END 2017-02-11 19:12 | disposition home or self-care (01) ==
LOC: D.ER 13:15
DX: M54.5 Low back pain (principal); W06.XXXA Fall from bed, initial encounter; Y93.89 Activity, other specified; Y92.023 Bedroom in mobile home as the place of occurrence of the external cause; I50.9 Heart failure, unspecified; J44.9 Chronic obstructive pulmonary disease, unspecified; Z86.73 Personal history of transient ischemic attack (TIA), and cerebral infarction without residual deficits; F03.90 Unspecified dementia, unspecified severity, without behavioral disturbance, psychotic disturbance, mood disturbance, and anxiety; Z85.850 Personal history of malignant neoplasm of thyroid

== ENCOUNTER 2017-02-13 03:39 | Inpatient (IN) | payer MEDICAID ==
[~2017-02-13] VITALS: Ht 175.3 cm; Wt 168.1 kg
[2017-02-13 04:15] LABS: HEMOGLOBIN 12.3 g/dL (13.5-17.5); LYMPHOCYTES 13.1 % (15-50); MCH 27.2 pg (26.0-34.0); MCHC 33.2 g/dL (31.0-37.0); MCV 81.9 fL (80.0-100.0); MEAN PLATELET VOLUME 11.7 fL (7.4-10.4); NEUTROPHILS 78.2 % (40-80); RBC 4.52 10x6/uL (4.20-6.10); RDW 15.7 % (11.5-14.5); WBC 11.9 10x3/uL (4.8-10.8)
[2017-02-13 04:16] LABS: PLATELET COUNT 137 10x3/uL (130-400)
[2017-02-13 04:24] LABS: ALBUMIN 3.1 g/dL (3.4-5.0); ANION GAP 9.7 mmol/L (8-16); BILIRUBIN - TOTAL 0.63 mg/dL (0.2-1.3); CALCIUM 9.1 mg/dL (8.5-10.1); CARBON DIOXIDE 29.7 mmol/L (21.0-32.0); CREATININE - SERUM 1.2 mg/dL (0.6-1.3); POTASSIUM - SERUM 4.4 mmol/L (3.5-5.1); PROTEIN - SERUM 8.3 g/dL (6.4-8.2)
[2017-02-13 05:17] LABS: APPEARANCE CLEAR (CLEAR); BILIRUBIN 1+ (NEGATIVE); COLOR YELLOW (YELLOW); GLUCOSE 1000 mg/dL (NEGATIVE); KETONE NEGATIVE (NEGATIVE); NITRITE NEGATIVE (NEGATIVE); PROTEIN TRACE mg/dL (NEGATIVE); UROBILINOGEN NORMAL (NORMAL); WHITE CELLS - URINE 0-5 /hpf (0-5)
[2017-02-13 11:26] VITALS: BP 181/94; BMI 52.2
--- NOTE | 2017-02-13 11:30 | NUR ---
PT RECEIVED TO ROOM FROM ER. PT PLACED ON SPECIALITY BED. PT IS ABLE TO ROLL FROM STRETCHER TO AIR BED WITH MINIMAL ASSIST. RR EVEN AND UNLABORED. O2 ON PT AT 2L VIA NC. LANDRY CATHETER DRAINING STRAW COLORED, CLEAR URINE. VSS, BP IS ELEVATED TO 181/94. WILL GIVE PTS HOME BP MEDS THAT ARE ALREADY ORDERED. WILL RECHECK BP AGAIN. PT REPORTS BEING IN PAIN IN HIS LEGS AND FEET, WILL GIVE ORDERED PAIN MED. CHECKED PTS BS, CURRENTLY 263. WILL TREAT PER SS INSULIN. PT RESTING QUIETLY IN SUPINE POSTION, COMPLTED ADMISSION ASSESMENT, HX, AND MED REC TO BEST OF PTS KNOWLEDGE. WILL GIVE MEDS AND CTM.
[2017-02-13 13:45] VITALS: Ht 175.3 cm; Wt 168.1 kg
--- NOTE | 2017-02-13 14:30 | NUR ---
BP HAS DECREASED TO 144/60 SINCE BP MEDS GIVEN. RR EVEN AND UNLABORED. BS 249, WILL GIVE SCHEDULED LANTUS. DENIES FURTHER NEEDS, WILL CTM.
[2017-02-13 16:22] VITALS: BP 119/59
--- NOTE | 2017-02-13 17:00 | NUR ---
PT REFUSED TO WEAR SCDS AT THIS TIME. HE REPORTS "THAT WOULD HURT BECAUSE OF MY PAIN IN MY FEET."
--- NOTE | 2017-02-13 18:45 | NUR ---
PT RESTING QUIETLY, RR EVEN AND UNLABORED. PT DENIES NEEDS AT THIS TIME. EMPTIED LANDRY CATHETER. WILL GIVE SHIFT REPORT ON PT CONDTION FOR THE DAY.
[2017-02-13 20:59] VITALS: BP 156/66
[2017-02-14 01:13] VITALS: BP 133/64
--- NOTE | 2017-02-14 03:02 | NUR ---
PATIENT RESTING WELL IN BED, RESPIRATIONS EVEN AND UNLABORED, CALL LIGHT IN REACH. WILL CONTINUE PLAN OF CARE.
[2017-02-14 04:51] VITALS: BP 93/47
--- NOTE | 2017-02-14 07:10 | NUR ---
RECEIVED REPORT. ASSUMED CARE OF PATIENT. CALL LIGHT WITHIN REACH. ALERT/ORIENTED. PATIENT WITH EYES OPEN. DENIES NEEDS AT THIS TIME. NO DISTRESS.
[2017-02-14 08:50] VITALS: BP 123/64
--- NOTE | 2017-02-14 11:06 | NUR ---
FSBS 312. 8 UNITS HUMULIN R ADMINISTERED PER SLIDING SCALE. NO DISTRESS.
[2017-02-14 11:52] VITALS: BP 112/85
--- NOTE | 2017-02-14 13:42 | NUR ---
PATIENT IS CORRAL BOSS LIGHT MULTIPLE TIMES FOR SAME PROBLEM. PATIENT IS ASKING FOR AN ARM BOARD TO KEEP HIS ARM STRAIGHT. WE DO NOT HAVE ARM BOARDS, ONLY PEDIATRIC SIZE. PATIENT IS ALERT/ORIENTED AND WILL NOT KEEP HIS ARM STRAIGHT.
[2017-02-14 15:48] VITALS: BP 128/61
--- NOTE | 2017-02-14 16:30 | NUR ---
FSBS 388. 10 UNITS HUMULIN R INSULIN ADMINISTERED PER SLIDING SCALE AT THIS TIME. LANTUS SOLOSTAR ADMINISTERED ORDERED. NO DISTRESS.
--- NOTE | 2017-02-14 21:00 | NUR ---
ROUNDING NOTE: PT VISITING WITH FRIEND AT THE BEDSIDE AT THE CHANGE OF SHIFT. PT IS AWAKE, ALERT, ORIENTED X3. REQUESTIGN SHERBERT ICECREAM AND WET WIPES TO GET CLEANED UP. GIVEN PER REQUEST. ALSO EXPLAINED TO THE PT THAT THE CNAS WERE PLANNING ON ASSISTING PT WITH A BATH WELL. HE IS AGREEABLE TO THIS. PT WOULD LIKE HIS PAIN MEDS SOON POSSIBLE. WILL CONT TO MONITOR.
[2017-02-14 21:24] VITALS: BP 137/65
--- NOTE | 2017-02-14 23:00 | NUR ---
HS FINGER STICK WAS 407 COVERED WITH 12UNITS PER SLIDING SCALE, REPEAT FINGER STICK IMPROVED TO 330.
[2017-02-15 04:00] VITALS: BP 91/67
--- NOTE | 2017-02-15 04:30 | NUR ---
PT'S BP NOTED TO 91/67. EXPLAINED TO PT THAT WE WILL HAVE TO BE CAREFUL WITH GIVING HIM HIS NARCOTICS IF HIS BP CONTINUES TO BE LOW. HE UNDERSTANDS AND AGREES WITH THIS PLAN. WILL CONT TO CLOSELY MONITOR.
--- NOTE | 2017-02-15 07:20 | NUR ---
RECEIVED REPORT. ASSUMED CARE OF PATIENT. CALL LIGHT WITHIN REACH. AWAKE.ALERT. RESP EVEN AND UNLABORED. NO DISTRESS. DENIES NEEDS AT THIS TIME.
--- NOTE | 2017-02-15 07:53 | NUR ---
20 GAUGE IV PLACED TO LEFT FOREARM X 1 STICK. GOOD BLOOD RETURN, EASY FLUSH. TAPED, DATED AND SECURED. PATIENT TOLERATED IV PLACEMENT WELL. IV ABX INFUSING AT THIS TIME. NO DISTRESS.
[2017-02-15 09:34] VITALS: BP 113/77
--- NOTE | 2017-02-15 12:03 | NUR ---
FSBS 359. 10 UNITS HUMULIN ADMINISTERED PER SLIDING SCALE. NO DISTRESS.
[2017-02-15 12:16] VITALS: BP 154/65
--- NOTE | 2017-02-15 16:00 | NUR ---
FSBS 386. HUMULIN AND LANTUS SOLOSTAR ADMINISTERED ORDERED. NO DISTRESS.
[2017-02-15 16:16] VITALS: BP 121/59
[2017-02-15 21:46] VITALS: BP 139/62
[2017-02-16] VITALS: BP 117/66
--- NOTE | 2017-02-16 02:30 | NUR ---
PT IN BED WITH HOB UP FOR COMFORT. EYES CLSOED. CHEST RISING AND FALLING. FSBS ACHS. LANDRY. O2 @ 4L VIA NC. LEFT FA SL. BED IN LOWEST POSITION AND CALL LIGHT WITHIN REACH.
[2017-02-16 05:33] VITALS: BP 144/63
--- NOTE | 2017-02-16 07:30 | NUR ---
REPORT RECEIVED. RR EVEN AND UNLABORED, PT REPORTS FEELING CHILLED. PT IS CLAMMY. PIPE STEM REPAIRER ROUNDING AND TAKING VS, WILL SEE WHAT TEMP IS RUNNING AND INTERVENE IF NECCESARY. WILL CTM.
[2017-02-16 08:52] VITALS: BP 117/56
--- NOTE | 2017-02-16 11:45 | NUR ---
FULL BED BATH AND LINEN CHANGE PROVIDED TO PT X1 ASSIST. PT THANKED ME FOR MY ASSISTANE. PT WAS ABLE TO ROLL WITHOUT DIFFICULTY.
[2017-02-16 12:39] VITALS: BP 123/50
--- NOTE | 2017-02-16 13:50 | NUR ---
Nutrition follow-up: diet: ADA consistent CHO PO intake ~75% average of last 6 meals Labs reviewed Glucose high Wt: 382# PO intake is good at this time RDN following.
[2017-02-16 16:27] VITALS: BP 110/39
--- NOTE | 2017-02-16 18:45 | NUR ---
PT RESTING QUIETLY, FAMILY AT BEDSIDE. PT DENIES NEEDS AT THIS TIME. WILL GIVE REPORT ON PT CONDITION FOR THE DAY.
[2017-02-16 21:22] VITALS: BP 109/53
[2017-02-17 02:14] VITALS: BP 93/69
[2017-02-17 05:55] VITALS: BP 121/57
--- NOTE | 2017-02-17 07:30 | NUR ---
RECEIVED REPORT ON PATIENT. MORNING ROUNDS MADE. PATIENT LAYING IN BED WITH EYES CLOSED. CHEST RISES AND FALLS EVENLY BILAT. NAD NOTED AT THIS TIME. WILL CONTINUE TO MONITOR. CPOC.
[2017-02-17 09:48] VITALS: BP 119/50
--- NOTE | 2017-02-17 12:03 | NUR ---
PATIENT SITTING UP IN BED, WATCHING TV. C/O HEADACHE, BUT STATES "I'LL TAKE MY PAIN MEDICINE AFTER LUNCH, I DON'T WANT TO MESS UP MY SCHEDULE..." WILL CONTINUE TO MONITOR AND GIVE MEDS WHEN HE IS READY TO TAKE THEM. CPOC.
[2017-02-17 12:26] VITALS: BP 119/50
--- NOTE | 2017-02-17 12:33 | NUR ---
PATIENT SITTING UP IN BED EATING LUNCH, DENIES ANY NEEDS. CPOC
--- NOTE | 2017-02-17 17:15 | NUR ---
NORCO GIVEN FOR PAIN 08/23. CPOC
--- NOTE | 2017-02-17 19:02 | NUR ---
EVENING ROUNDS MADE. DENIES ANY NEEDS AT THIS TIME. CPOC.
--- NOTE | 2017-02-17 19:12 | NUR ---
Patient Name: BRIAN PABLO Admission Status: ER Accout number: [id number] Admission Date: 02-13-2017 : 1965 Admission Diagnosis: Attending: SYD AGUIRRE Current LOS: 4 Anticipated DC Date: 02-18-2017 Planned Disposition: Home with Home Health Primary Insurance: MEDICAID [place] PLANNED EXTERNAL PROVIDER: NO PREFERNCE ON PROVIDER Discharge Planning Comments: * Is the patient Alert and Oriented? Yes 0 * How many steps to enter\\exit or inside your home? NONE 0 * PCP DR. AGUIRRE 0 * Pharmacy [facility] * Preadmission Environment Home Alone 0 * ADLs Partial Dependent 0 * Partial ADLs (Assistance needed) Ambulation Bathing Dressing Medication Management Toileting Transfers 0 * Equipment Bedside Commode CPAP Elevated [place] Seat Nebulizer Oxygen Rolling Walker Shower Chair Walker Wheelchair 0 * Other Equipment ELECTRIC WHEELCHAIR HOME AND PORTABLE OXYGEN [facility] - MEDICAL EQUIPMENT PROVIDER 0 * List name and contact numbers for known caregivers / representatives who currently or will assist patient after discharge: BYRON PABLO, PAVANER, 0 * Community resources currently utilized Private Duty Care 0 * Please name any agencies selected above. [facility], 12 HOURS PER DAY, 7 DAYS PER WEEK 0 * Additional services required to return to the preadmission environment? Yes * Can the patient safely return to the preadmission environment? Yes 0 * Has this patient been hospitalized within the prior 30 days at any hospital? Yes 0 CM RECEIVED ORDER FOR DISCHARGE PLANNING, MET WITH PT IN ROOM TO DISCUSS DISCHARGE PLANNING AND NEEDS. PT REPORTS LIVING AT HOME ALONE, DEPENDENT ON PERSONAL CARE SERVICES FROM [facility]. PT REPORTS HAVING ALL NEEDED MEDICAL EQUIPMENT EXCEPT FOR THE [facility] BED AND THAT DR. AGUIRRE IS STILL SUBMITTING CHART NOTES AND JUSTIFICATION MEDICAID DENIED THE BED ONCE. CM DISCUSSED AVAILABILITY OF HOME HEALTH, REHAB SERVICES AND MEDICAL EQUIPMENT. PT REPORTS HE WOULD ACCEPT HOME HEALTH FOR THERAPY HE WOULD LIKE TO GET STRONGER TO BE ABLE TO BE MOBILE ON HIS OWN, CHOICE SIGNED FOR NO HOME HEALTH PROVIDER PREFERENCE, REPORTS HIS [facility]AREGIVE WILL PICK HIM UP FOR DISCHARGE HOME WITH PT'S ELECTRIC WHEELCHAIR AND VAN. CM DISCUSSED ISSUES WITH PT'S BROTHER; PT REPORTS THAT HIS BROTHER JUST ARGUED WITH HIM VERBALLY AND THERE WAS NO "FIST FIGHT OR NOTHING." PT REPORTS THAT HIS BROTHER DOES NOT LIVE WITH HIM AND GETS MAD WHEN PT ASKS HIS BROTHER TO DO STUFF. CM DISCUSSED PLACEMENT IN [facility] OR ASSISTED LIVING. PT REPORTS THAT HE HAS A LIVE IN GIRLFRIEND, 4 YEAR OLD BABY THAT HE HELPS TAKE CARE OF AND TWO OLDER CHIDREN THAT VISIT AND STAY WITH HIM AT TIMES. PT DENIES NEED OF PLACEMENT AND REPORTS HE WILL BE GOING HOME AT DISCHARGE. PT WOULD LIKE HOME HEALTH WITH NO PROVIDER PREFERENCE AT DISCHARGE HOME. CM TO ARRANGE HOME HEALTH FOR PHYSICAL THERAPY WITH PHYSICIAN ORDERS. Drafter Topographical: Raji Phelps
--- NOTE | 2017-02-17 19:45 | NUR ---
ROUNDING NOTE: PT LAYING IN BED WATCHING TV AT THE CHANGE OF SHIFT. PT REQUESTING PAIN MEDS AND A FRESH ICE WATER WITH HIS BEDTIME MED PASS, WHICH WILL BE GIVEN PER REQUEST. WILL MONITOR.
[2017-02-17 21:50] VITALS: BP 134/59
[2017-02-18 00:20] VITALS: BP 125/61
[2017-02-18 04:33] VITALS: BP 151/92
--- NOTE | 2017-02-18 06:46 | NUR ---
PT HAS BEEN SLEEPING THROUGHOUT THE NIGHT, RESTING COMFORTABLY. MEDICATED WITH PRN PAIN MEDS X1 PER REQUEST. NO COMPLAINTS. NO ACUTE DISTRESS. VITAL SIGNS STABLE. WILL CONT TO MONITOR. PT STATES THAT HE MIGHT BE GOING HOME TODAY OR TOMORROW. HE IS HOPEFUL FOR TODOAY. WILL MONITOR.
--- NOTE | 2017-02-18 07:15 | NUR ---
REPORT RECEIVED. RR EVEN AND UNLAOBRED. BOILERMAKER SHIP AT BEDSIDE OBTAING VS. PT DENIES NEEDS AT THIS TIME. WILL CTM.
[2017-02-18 07:46] VITALS: BP 133/82
[2017-02-18] MEDS ORDERED: FLOMAX0.4 MG PO (09:09)
[2017-02-18] MEDS ORDERED: CATAPRES0.2 MG PO (09:10)
[2017-02-18] MEDS ORDERED: LANTUS INSULIN10 ML SC (09:12)
[2017-02-18] MEDS ORDERED: HUMULIN R100 U/ML SC (09:14)
[2017-02-18] MEDS ORDERED: NYSTATIN1 PWD TOPICAL (09:15)
[2017-02-18 11:22] VITALS: BP 113/48
--- NOTE | 2017-02-18 13:04 | NUR ---
Patient Name: BRIAN PABLO Admission Status: ER Accout number: [id number] Admission Date: 02-13-2017 : 1965 Admission Diagnosis: Attending: SYD AGUIRRE Current LOS: 5 Anticipated DC Date: 02-18-2017 Planned Disposition: Home with Home Health Primary Insurance: MEDICAID [place] PLANNED EXTERNAL PROVIDER: [facility] Discharge Planning Comments: CM RECEIVED HOME HEALTH ORDER, CALLED [facility], SPOKE TO [facility] WHO WILL ACCEPT PT FOR ADMIT ON THURSDAY; CM NOTIFIED PT WHO IS IN AGREEMENT WITH DISCHARGE TODAY WITH HOME HEALTH TO ADMIT ON THURSDAY CM FAXED DISCHARGE INFORMATION TO [facility]. NO FURTHER DISCHARGE NEEDS IDENTIFIED. Training And Development Officer: Raji Phelps
--- NOTE | 2017-02-18 15:58 | NUR ---
PT DISCHARGED. D/C INSTRUCTIONS PROVIDED AND GIVEN TO PT. LANDRY CATHTER REMOVED, IV REMOVED WITH CATHETER TIP INTACT. DRESSING APPLIED. PT DENIES FURTHER NEEDS. WILL CALL WHEN READY TO GO WITH FRIEND (WHO PT REPORTS IS A NURSE). WILL BE LEAVING IN HER PERSONNAL VEHCILE.
== END 2017-02-18 16:19 | disposition home health service (06) | DRG 638 ==
LOC: D.ER 03:39 → D.M2 06:48 → OBSVTIME 06:48 → D.M2 09:38
PROVIDERS: Emergency Medicine; ADMIT Legal Medicine
PROC: 0T9B70Z Drainage of Bladder with Drainage Device, Via Natural or Artificial Opening (ICD-10-PCS; principal; 2017-02-13)
DX: E11.622 Type 2 diabetes mellitus with other skin ulcer (principal); L97.919 Non-pressure chronic ulcer of unspecified part of right lower leg with unspecified severity; L03.115 Cellulitis of right lower limb; Z68.43 Body mass index [BMI] 50.0-59.9, adult; I75.021 Atheroembolism of right lower extremity; E11.319 Type 2 diabetes mellitus with unspecified diabetic retinopathy without macular edema; I10 Essential (primary) hypertension; E66.01 Morbid (severe) obesity due to excess calories; W19.XXXA Unspecified fall, initial encounter